=== PATIENT | male | born 1955 | race Caucasian/White ===

== ENCOUNTER 2023-08-18 14:16 | Inpatient (IN) ==
--- NOTE | 2023-08-18 14:32 | ED Triage Note ---
Date of Service August 18, 2023 History of Present Illness This patient was briefly evaluated while in triage. An abbreviated physical exam was performed. This patient is a 68-year-old Male who presents to the ED for evaluation of foot pain. Left foot. He notes a bad infected wound on his heel. He had bad "sweats" last night. Physical Exam GENERAL: 68 year old male. In no acute distress. SKIN: L foot dressing in place. HEART: Regular rate and rhythm. LUNGS: Clear to auscultation. NEURO: Alert and oriented. No deficits. PSYCH: Patient is pleasant and answers all questions appropriately. Initial orders for labs and / or imaging were placed and patient was placed in the waiting area until a bed is available. Please see further documentation for the full ED course.
--- NOTE | 2023-08-18 15:45 | XRay Report ---
XR foot LT min 3V routine HISTORY: 68 years-old Male L foot pain, wound chronic left foot pain COMPARISON: None TECHNIQUE: 3 views of the left foot FINDINGS: Demineralized appearance of the bones. Soft tissue swelling is most pronounced in the dorsal forefoot . Mild to moderate osteoarthritis. No acute fracture, dislocation or opaque foreign body identified. No osseous erosions are seen. IMPRESSION: Soft tissue swelling without acute osseous abnormality identified. ACT 112: Negative or not required by law. The above report was generated using voice recognition software. It may contain grammatical, syntax o r spelling errors. Electronically signed by: Enrrique Ramos M.D. 08/18/2023 3:43 PM
[2023-08-18 16:19] LABS: Albumin Globulin Ratio 0.8 (0.9-2); Bilirubin,Total 1.1 mg/dl (0.2-1.0); Creatinine Clr Calc Pharmacy 98.7 ml/min; Est GFR (African American) 90.5 ml/min; Est GFR (Non-African American) 78.1 ml/min; Globulin 4.9 gm/dl (2.5-4.0); Potassium 3.1 mmol/L (3.5-5.1); Total Protein 8.9 gm/dl (6.0-8.3)
[2023-08-18 16:27] LABS: Basophils # (auto) 0.09 K/uL (0.00-0.20); Basophils % (auto) 0.5 %; Eosinophils # (auto) 0.01 K/uL (0.00-0.50); Eosinophils % (auto) 0.1 %; Hematocrit (blood only) 52.8 % (42.0-52.0); Hemoglobin 18.8 g/dl (14.0-18.0); Immature Granulocytes # (auto) 0.15 K/uL (0.01-0.20); Immature Granulocytes % (auto) 0.8 %; Lymphocytes # (auto) 0.69 K/uL (1.20-3.40); Lymphocytes % (auto) 3.5 %; Mean Corpuscular Hemoglobin 34.3 pg (25.0-34.0); Mean Corpuscular Hgb Conc 35.6 g/dL (32.0-36.0); Mean Corpuscular Volume 96.4 fL (80.0-100.0); Mean Platelet Volume 9.7 fL (9.4-12.4); Monocytes # (auto) 2.26 K/uL (0.11-0.59); Monocytes % (auto) 11.3 %; Neutrophils # (auto) 16.74 K/uL (1.40-6.50); Neutrophils % (auto) 83.8 %; Platelet Count 332 K/uL (130-400); RDW Coefficient of Variation 12.1 % (11.5-14.5); RDW Standard Deviation 43.2 fL (36.4-46.3); Red Blood Count 5.48 M/uL (4.70-6.10); White Blood Count 19.94 K/ul (4.8-10.8)
[2023-08-18 16:36] LABS: INR 1.1 (0.9-1.1); Prothrombin Time 12.2 Seconds (9.0-12.0)
[2023-08-18] MEDS ORDERED: CEFEPIME 2,000 MG/20 ML VIAL IV STA (16:46)
[2023-08-18] MEDS ORDERED: SODIUM CHLORIDE 0.9% 1,000 ML IV ONE (16:46)
[2023-08-18] MEDS ORDERED: POTASSIUM CHLORIDE CRTAB 20 MEQ TABCR PO STA ×2 (16:46→18:12)
--- NOTE | 2023-08-18 16:47 | Emergency Department Note ---
Impression & Plan Left foot infection ADMIT ED Provider Note HPI: History obtained from patient. The patient is a 68-year-old male with history of peripheral artery disease, presents emergency department for evaluation of a wound to the left lower extremity near the heel. Patient states that he has had a dark spot on his heel for some time now but 3 weeks ago he began to notice a wound that began draining some purulent material. He received a referral to be seen in wound care and he went there today. He was referred to the ED over concern for infection. ROS: - Per HPI Differential Diagnosis: Infected pressure ulcer of the left heel, osteomyelitis, necrotizing soft tissue infection, wound cellulitis, amongst other potential pathologies. *Outpatient medications and allergy history reviewed. *Pertinent external medical records reviewed PE: General: Alert HEENT: Normocephalic, trachea midline Eyes: Extraocular eye movement is intact, no scleral erythema Pulmonary: Clear to auscultation bilaterally, no wheezing Cardio: Regular rate and rhythm GI: Abdomen is soft to palpation : No suprapubic tenderness MSK: No evidence of trauma or malformation of the extremities, no edema, there is an unstageable pressure ulcer of the left heel with some moderate purulent drainage to the posterior and lateral aspect of the wound, there is no crepitus in the surrounding soft tissues, no pain out of proportion to exam Skin: No evidence of rash, wound findings to left heel as above Neuro: Alert, no focal deficits Psychiatric: Cooperative INDEPENDENT INTERPRETATIONS: respiratory support technician: (As interpreted by myself): - An order was placed for continuous cardiac monitoring - Patient was noted to be in sinus rhythm with a rate of 95 Interventions provided in ED: -IV fluid bolus, IV cefepime, IV vancomycin Medical Decision Making: Shortly after the patient arrived IV was established lab work ordered, patient was eventually placed in ED room when available. Patient was placed on promotion writer. Lab work shows a leukocytosis of 19.9, hemoglobin is slightly high at 18.8, platelet count is within normal limits, CMP shows mild hyponatremia 132, potassium is low at 3.1, no evidence of acute kidney injury, procalcitonin is indeterminate at 0.35. X-ray imaging of the left foot does not show any evidence of any obvious osteomyelitis. On my exam the wound is purulent, he does have a large eschar on the left heel. I do suspect he has a wound infection and given his leukocytosis will require IV antibiotics and likely surgical debridement. I discussed the patient's presentation with podiatry, Dr. Chau, and he is in agreement for consultation. Case was then discussed with the on-call hospitalist, Dr. Hu, who accepted the patient to the [facility] hospitalist service for further care. Consultants/Discussions held with other healthcare providers: -Dr. Chau, Podiatry -Dr. Hu, Hospitalist Disposition discussion held by myself with: -Patient Diagnosis: 1. Pressure ulcer of the left heel, chronic 2. Left heel wound infection, acute 3. Leukocytosis, acute 4. Hypokalemia, acute 5. Hyponatremia, acute Disposition: Admission Bunny Fay DO Emergency Medicine Past Med/Surg History Medical History (Updated 08/18/23 @ 17:33 by Bunny Fay DO) Hearing loss Neuropathy Personal history of alcoholism Surgical History (Updated 09/11/22 @ 08:33 by Brenda Arias RN) Hx of arthroscopy of left knee meniscus repair Hx of colonoscopy 02/15/11 Hx of colonoscopy 06/01/2020 - prior polyps; S/P bronchoscopy with bronchoalveolar lavage 06/28/22 Family History (Updated 09/11/22 @ 09:29 by Brenda Arias RN) Mother Hypertension Aneurysm of heart Father , age 87 Arterial disease Grandfather (Maternal) Colon cancer, Onset Age: 89 Social History (Updated 09/11/22 @ 09:23 by Brenda Arias RN) Smoking Status: Current every day smoker Tobacco Type: Cigarettes Age Started Using Tobacco: 22; packs per day: 1; Second Hand Exposure: Yes; Hx Alcohol Use: Yes Alcohol type: hard liquor Alcohol type Comment: 3-4 oz mixed whiskey per day Alcohol Intake Frequency: 4 or More x per/Week Hx Substance Use: Yes Prescribed Medications: Marijuana Preferred Language: Turkish Communication Ability: Effective Beliefs That Will Affect Care: None marital status: Current Living Situation: Spouse current occupational status: disabled 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; contractor Feels Safe at Home: Yes Allergies Allergies Allergy/AdvReac Type Severity Reaction Status Date / Time No Known Allergies Allergy Unverified 08/18/23 10:20 Home Meds Home Medications Medication Instructions Recorded Confirmed cyanocobalamin (vitamin B-12) 1,000 mcg sublingual DAILY 09/11/22 08/18/23 1,000 mcg sublingual lozenge folic acid 1 mg tablet 1 mg PO DAILY 09/11/22 08/18/23 gabapentin 300 mg capsule 900 mg PO TID 09/11/22 08/18/23 hydrochlorothiazide 25 mg tablet 25 mg PO DAILY 09/11/22 08/18/23 indomethacin 50 mg capsule 50 mg PO TID PRN pain 09/11/22 08/18/23 pregabalin 25 mg capsule 25 mg PO BID 09/11/22 08/18/23 thiamine HCl (vitamin B1) 100 mg 100 mg PO DAILY 09/11/22 08/18/23 tablet triamcinolone acetonide 0.1 % 1 applic topical BID 09/11/22 08/18/23 topical ointment acetaminophen 500 mg tablet 1,500 mg PO DAILY PRN Pain 01/24/23 08/18/23 (Tylenol Extra Strength) Results & Data (ED) Vital Signs Vital Signs - 24 hr 08/18/23 14:31 08/18/23 17:38 Temperature 37.0 C Temperature Source Temporal Artery Scan Pulse Rate 112 H 93 H Respiratory Rate 20 Respiratory Effort / Characteristics Non-Labored Respiratory Depth Normal Blood Pressure 115/80 Blood Pressure Mean 91 Pulse Oximetry 96 Oxygen Delivery Method Room Air Sepsis Recent Fever Within 48 Hours No Sepsis New/Unexplained Change in Mental Status No Sepsis Action Taken by Nursing No Action Required Laboratory Data 08/18/23 15:32 08/18/23 15:32 Lab Results 08/18/23 08/18/23 08/18/23 Range/Units 15:32 15:32 15:32 WBC 19.94 H (4.8-10.8) K/ul RBC 5.48 (4.70-6.10) M/uL Hgb 18.8 H (14.0-18.0) g/dl Hct 52.8 H (42.0-52.0) % MCV 96.4 (80.0-100.0) fL MCH 34.3 H (25.0-34.0) pg MCHC 35.6 (32.0-36.0) g/dL RDW Std Deviation 43.2 (36.4-46.3) fL RDW Coeff of Vonnie 12.1 (11.5-14.5) % Plt Count 332 (130-400) K/uL MPV 9.7 (9.4-12.4) fL Immature Gran % (Auto) 0.8 % Neut % (Auto) 83.8 % Lymph % (Auto) 3.5 % [place] % (Auto) 11.3 % Eos % (Auto) 0.1 % Baso % (Auto) 0.5 % Neut # (Auto) 16.74 H (1.40-6.50) K/uL Lymph # (Auto) 0.69 L (1.20-3.40) K/uL [place] # (Auto) 2.26 H (0.11-0.59) K/uL Eos # (Auto) 0.01 (0.00-0.50) K/uL Baso # (Auto) 0.09 (0.00-0.20) K/uL Immature Gran # (Auto) 0.15 (0.01-0.20) K/uL PT 12.2 H (9.0-12.0) Seconds INR 1.1 (0.9-1.1) APTT 28.0 (21.0-31.0) Seconds PTT Ratio 1.0 Sodium 132 L (136-145) mmol/L Potassium 3.1 L (3.5-5.1) mmol/L Chloride 95 L (98-107) mmol/L Carbon Dioxide 29 (21-32) mmol/L Anion Gap 8 (3-11) BUN 19 (6-23) mg/dl Creatinine 1.00 (0.6-1.4) mg/dl Est Cr Clr Drug Dosing 98.7 ml/min Est GFR ( Amer) 90.5 ml/min Est GFR (Non-Af Amer) 78.1 ml/min BUN/Creatinine Ratio 19.0 (10-20) Glucose 118 H (70-99(Fasting)) mg/dl Lactate (0.4-2.0) mmol/L Calcium 10.0 (8.6-10.3) mg/dl Total Bilirubin 1.1 H (0.2-1.0) mg/dl AST 21 (13-39) U/L ALT 14 (7-52) U/L Alkaline Phosphatase 78 (34-104) U/L Total Protein 8.9 H (6.0-8.3) gm/dl Albumin 4.0 (3.4-5.0) gm/dl Globulin 4.9 H (2.5-4.0) gm/dl Albumin/Globulin Ratio 0.8 L (0.9-2) Procalcitonin (0-0.5) ng/ml 08/18/23 08/18/23 Range/Units 15:32 15:41 WBC (4.8-10.8) K/ul RBC (4.70-6.10) M/uL Hgb (14.0-18.0) g/dl Hct (42.0-52.0) % MCV (80.0-100.0) fL MCH (25.0-34.0) pg MCHC (32.0-36.0) g/dL RDW Std Deviation (36.4-46.3) fL RDW Coeff of Vonnie (11.5-14.5) % Plt Count (130-400) K/uL MPV (9.4-12.4) fL Immature Gran % (Auto) % Neut % (Auto) % Lymph % (Auto) % [place] % (Auto) % Eos % (Auto) % Baso % (Auto) % Neut # (Auto) (1.40-6.50) K/uL Lymph # (Auto) (1.20-3.40) K/uL [place] # (Auto) (0.11-0.59) K/uL Eos # (Auto) (0.00-0.50) K/uL Baso # (Auto) (0.00-0.20) K/uL Immature Gran # (Auto) (0.01-0.20) K/uL PT (9.0-12.0) Seconds INR (0.9-1.1) APTT (21.0-31.0) Seconds PTT Ratio Sodium (136-145) mmol/L Potassium (3.5-5.1) mmol/L Chloride (98-107) mmol/L Carbon Dioxide (21-32) mmol/L Anion Gap (3-11) BUN (6-23) mg/dl Creatinine (0.6-1.4) mg/dl Est Cr Clr Drug Dosing ml/min Est GFR ( Amer) ml/min Est GFR (Non-Af Amer) ml/min BUN/Creatinine Ratio (10-20) Glucose (70-99(Fasting)) mg/dl Lactate 1.8 (0.4-2.0) mmol/L Calcium (8.6-10.3) mg/dl Total Bilirubin (0.2-1.0) mg/dl AST (13-39) U/L ALT (7-52) U/L Alkaline Phosphatase (34-104) U/L Total Protein (6.0-8.3) gm/dl Albumin (3.4-5.0) gm/dl Globulin (2.5-4.0) gm/dl Albumin/Globulin Ratio (0.9-2) Procalcitonin 0.35 (0-0.5) ng/ml Administered Medications Vancomycin HCl 2,000 mg/ (Sodium Chloride) 540 mls @ 200 mls/hr IV NOW ONE Stop: 08/18/23 19:31 Last Admin: 08/18/23 17:44 Dose: 200 mls/hr Documented By: ROLL MECHANIC Discontinued Medications Sodium Chloride (Nss) 1,000 mls @ 999 mls/hr IV .Q1H1M ONE Stop: 08/18/23 17:46 Last Admin: 08/18/23 17:45 Dose: 999 mls/hr Documented By: ROLL MECHANIC Cefepime HCl (Maxipime) 2,000 mg in 20 mls @ 5 mls/min IV NOW STA; Protocol Stop: 08/18/23 16:49 Last Admin: 08/18/23 17:44 Dose: 5 mls/min Documented By: ROLL MECHANIC Potassium Chloride (Potassium Chloride Crtab 20 Meq Tabcr) 40 meq PO NOW STA Stop: 08/18/23 16:47 Last Admin: 08/18/23 17:41 Dose: 40 meq Documented By: ROLL MECHANIC Imaging Data Radiologist's Impression: Foot X-Ray 08/18/23 14:33 XR foot LT min 3V routine HISTORY: 68 years-old Male L foot pain, wound chronic left foot pain COMPARISON: None TECHNIQUE: 3 views of the left foot FINDINGS: Demineralized appearance of the bones. Soft tissue swelling is most pronounced in the dorsal forefoot. Mild to moderate osteoarthritis. No acute fracture, dislocation or opaque foreign body identified. No osseous erosions are seen. IMPRESSION: Soft tissue swelling without acute osseous abnormality identified. ACT 112: Negative or not required by law. The above report was generated using voice recognition software. It may contain grammatical, syntax or spelling errors. Electronically signed by: Enrrique Ramos M.D. 08/18/2023 3:43 PM Discharge Plan Visit Data Chief Complaint: Foot Injury/Pain Stated Complaint: LT FOOT WOUND, REF FROM ED Provider: Bunny Fay Discharge Problem: Left foot infection Forms Stand Alone Forms: [facility] Prescriptions Prescriptions: No Action cyanocobalamin (vitamin B-12) 1,000 mcg lozenge 1,000 mcg sublingual DAILY thiamine HCl (vitamin B1) 100 mg tablet 100 mg PO DAILY triamcinolone acetonide 0.1 % ointment 1 applic topical BID folic acid 1 mg tablet 1 mg PO DAILY indomethacin 50 mg capsule 50 mg PO TID PRN (Reason: pain) Rx Instructions: administer with food or milk pregabalin 25 mg capsule 25 mg PO BID gabapentin 300 mg capsule 900 mg PO TID hydrochlorothiazide 25 mg tablet 25 mg PO DAILY acetaminophen [Tylenol Extra Strength] 500 mg tablet 1,500 mg PO DAILY PRN (Reason: Pain) Referrals Referrals: PCP,NO [Primary Care Provider] -
[2023-08-18] MEDS ORDERED: VANCOMYCIN CONSULT ACTIVE PRN (16:50)
[2023-08-18] MEDS ORDERED: VANCOMYCIN HCL 2,000 MG in SODIUM CHLORIDE 0.9% 500 ML IV ONE (16:50)
--- NOTE | 2023-08-18 17:32 | History & Physical Report ---
Date of Service August 18, 2023 Assessment & Plan (1) Left foot infection: Plan: 68-year-old male with history of peripheral vascular disease, COPD, etc. presenting with left foot wound infection. LEFT FOOT WOUND INFECTION IN THE SETTING OF PERIPHERAL VASCULAR DISEASE Foot x-ray no osteomyelitis MRI foot ordered Doppler arterial ultrasound ordered Wound culture Blood culture Consult orthopedic service, NPO post midnight Consult infectious disease service Empiric daptomycin plus cefepime check A1c Hyponatremia check serum and urine osm and Na IV NSS at 80cc/hr Hypokalemia replace and monitor check Mg Peripheral vascular disease Should be on aspirin and statin COPD In exacerbation Alcohol Use states he drink 2x/week 4oz will order Alc With Protocol with PRN Ativan Smoker declines Nicotine patch cessation strongly advised 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 presenting with left foot wound infection. Patient reports noticing discoloration of left heel area for the past few weeks. Reports having chills, night sweats but denies pain over the area. He noticed progressive foot swelling, redness and progression to his left lower leg. He presented to the wound care center today and was referred to [facility] ER for evaluation and treatment. Patient's vital signs were stable, but with leukocytosis. Lactic acid negative. Foot x-ray: Soft tissue swelling He was started on vancomycin plus cefepime On exam patient seen resting , not in distress, denies active pain on the foot. Primary Care Provider: NO PCP Allergies Allergy/AdvReac Type Severity Reaction Status Date / Time No Known Allergies Allergy Unverified 08/18/23 10:20 Home Medications Medication Instructions Recorded Confirmed Type cyanocobalamin (vitamin B-12) 1,000 mcg sublingual DAILY 09/11/22 08/18/23 History 1,000 mcg sublingual lozenge folic acid 1 mg tablet 1 mg PO DAILY 09/11/22 08/18/23 History gabapentin 300 mg capsule 900 mg PO TID 09/11/22 08/18/23 History hydrochlorothiazide 25 mg tablet 25 mg PO DAILY 09/11/22 08/18/23 History indomethacin 50 mg capsule 50 mg PO TID PRN pain 09/11/22 08/18/23 History pregabalin 25 mg capsule 25 mg PO BID 09/11/22 08/18/23 History thiamine HCl (vitamin B1) 100 mg 100 mg PO DAILY 09/11/22 08/18/23 History tablet triamcinolone acetonide 0.1 % 1 applic topical BID 09/11/22 08/18/23 History topical ointment acetaminophen 500 mg tablet 1,500 mg PO DAILY PRN Pain 01/24/23 08/18/23 History (Tylenol Extra Strength) Past Med/Surg History Medical History Hearing loss Neuropathy Personal history of alcoholism Surgical History Hx of arthroscopy of left knee meniscus repair Hx of colonoscopy 02/15/11 Hx of colonoscopy 06/01/2020 - prior polyps; S/P bronchoscopy with bronchoalveolar lavage 06/28/22 Family History Mother Hypertension Aneurysm of heart Father , age 87 Arterial disease Grandfather (Maternal) Colon cancer, Onset Age: 89 Social History Smoking Status: Former smoker Tobacco Type: Cigarettes Age Started Using Tobacco: 22; packs per day: 1; Second Hand Exposure: Yes; Do You Dip or Chew Tobacco: No; Hx Alcohol Use: Yes Alcohol type: hard liquor Alcohol type Comment: 3-4 oz mixed whiskey per day Alcohol Intake Frequency: 4 or More x per/Week Hx Substance Use: Yes Prescribed Medications: Marijuana Last Used Substance: Days (ago) Preferred Language: Tajik Communication Ability: Effective Building Serviceman Required: No Beliefs That Will Affect Care: None marital status: Current Living Situation: Spouse current occupational status: disabled 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; contractor Other Information That Helps Us Care for You: No Feels Safe at Home: Yes Safety Concerns: Feels Safe At This Time Assistive Devices: Cane, Walker and Wheelchair Review of Systems Review of Systems: all noted and negative except for above Physical Exam Physical Exam: General- oriented x 3, not in distress, speaks in sentences with no effort or accessory muscle use Eyes- anicteric Neck- no JVD Lungs- clear breath sounds bilaterally, no rales/wheezes Heart- normal rate, regular rhythm; no murmurs Abdomen- normal bowel sounds, nondistended, soft, nontender Extremities- no pretibial edema, no calf tenderness Left foot: Positive for wound on the heel, with eschar, surrounding erythema, and edema, warmth, tenderness Left lower leg also with mild edema, and erythema Neuro- alert, oriented x 3; no gross focal neurologic deficits Skin- warm & dry Results & Data Results & Data Vital Signs (Past 12 Hours) Vital Signs Temp Pulse Resp BP Pulse Ox O2 Del Method 08/18/23 14:31 37.0 C 112 H 20 115/80 96 Room Air all noted and reviewed including below
[2023-08-18] MEDS ORDERED: LORazepam 2 MG/1 ML VIAL IV PRN (18:09)
--- NOTE | 2023-08-18 20:54 | Magnetic Resonance Report ---
Exam(s): MRI LEFT ANKLE Without Contrast EXAM: MR Left Lower Extremity Without Intravenous Contrast, Ankle CLINICAL HISTORY: Reason for exam: r/o osteomyelitis. TECHNIQUE: Multiplanar magnetic resonance images of the left ankle without intravenous contrast. COMPARISON: No relevant prior studies available. FINDINGS: Intact tibiotalar, subtalar, calcaneocuboid, talonavicular joints. Intact distal Achilles tendon. Mild fluid posterior to the ankle joint. Moderate thickening of the medial cord of plantar fascia, but small heel spur. Large heel ulcer, measures approximately 4.8 cm mid-lateral by 2.8 cm anteroposterior and is approximately 7 mm deep. No edema of the underlying calcaneus to indicate osteomyelitis. No fluid collection or abscess. Mild posterior tibial tenosynovitis. Moderate flexor houses longus tenosynovitis. Bilateral peroneal tenosynovitis. Intact anterior extensor tendons. Circumferential subcutaneous edema. Intact deltoid ligament, which is mildly scarred. No osteochondral lesion of the talar dome. IMPRESSION: Large heel ulcer, measures approximately 4.8 cm mid-lateral by 2.8 cm anteroposterior and is approximately 7 mm deep. No edema of the underlying calcaneus to indicate osteomyelitis. No fluid collection or abscess. Electronically signed by: Ari Batista MD 08/18/23 20:54 PM
[2023-08-18] MEDS: PREGABALIN 25 MG CAP PO SCH (22:35)
[2023-08-18] MEDS: GABAPENTIN 300 MG CAP PO SCH (22:35)
[2023-08-18] MEDS: DAPTOmycin 375 MG in SYRINGE 0 ML IV SCH (22:36)
[2023-08-18] MEDS: SODIUM CHLORIDE 0.9% 1,000 ML IV SCH (22:40)
--- NOTE | 2023-08-18 22:42 | Orthopedic Consultation ---
Date of Consultation August 18, 2023 Assessment & Plan (1) Left foot infection: Patient seen and evaluated in [facility] ED. A thorough evaluation of right heel wound was done in detail. Off loading is an important part of this Patient's management. Doni hedrick ordered for off loading at all times. Discussed use of bedside debridement. Patient may require surgical care and will continue to follow while in house. (2) Ulcer of left heel: History of Present Illness Attending Physician: Rajeev Hu MD History of Present Illness Patient is a 68-year-old male seen in [facility] ED for left heel ulcer. Patient has a past medical history significant for peripheral vascular disease, COPD, neuropathy, and alcoholism. Patient was seen at [facility] wound healing center and refered to [facility] ER for evaluation and treatment. Patient reports noticing discoloration of left heel area for the past few weeks. Reports having chills, night sweats but denies pain over the area. He noticed progressive foot swelling, redness and progression to his left lower leg. Patient's vital signs were stable, but with leukocytosis. Allergies Allergy/AdvReac Type Severity Reaction Status Date / Time No Known Allergies Allergy Unverified 08/18/23 10:20 Home Medications Medication Instructions Recorded Confirmed Type cyanocobalamin (vitamin B-12) 1,000 mcg sublingual DAILY 09/11/22 08/18/23 History 1,000 mcg sublingual lozenge folic acid 1 mg tablet 1 mg PO DAILY 09/11/22 08/18/23 History gabapentin 300 mg capsule 900 mg PO TID 09/11/22 08/18/23 History hydrochlorothiazide 25 mg tablet 25 mg PO DAILY 09/11/22 08/18/23 History indomethacin 50 mg capsule 50 mg PO TID PRN pain 09/11/22 08/18/23 History pregabalin 25 mg capsule 25 mg PO BID 09/11/22 08/18/23 History thiamine HCl (vitamin B1) 100 mg 100 mg PO DAILY 09/11/22 08/18/23 History tablet triamcinolone acetonide 0.1 % 1 applic topical BID 09/11/22 08/18/23 History topical ointment acetaminophen 500 mg tablet 1,500 mg PO DAILY PRN Pain 01/24/23 08/18/23 History (Tylenol Extra Strength) Patient History Medical History Hearing loss Neuropathy Personal history of alcoholism Surgical History Hx of arthroscopy of left knee meniscus repair Hx of colonoscopy 02/15/11 Hx of colonoscopy 06/01/2020 - prior polyps; S/P bronchoscopy with bronchoalveolar lavage 06/28/22 Family History Mother Hypertension Aneurysm of heart Father , age 87 Arterial disease Grandfather (Maternal) Colon cancer, Onset Age: 89 Social History Smoking Status: Former smoker Tobacco Type: Cigarettes Age Started Using Tobacco: 22; packs per day: 1; Second Hand Exposure: Yes; Do You Dip or Chew Tobacco: No; Hx Alcohol Use: Yes Alcohol type: hard liquor Alcohol type Comment: 3-4 oz mixed whiskey per day Alcohol Intake Frequency: 4 or More x per/Week Hx Substance Use: Yes Prescribed Medications: Marijuana Last Used Substance: Days (ago) Preferred Language: Colombian Communication Ability: Effective Performing Artist Required: No Beliefs That Will Affect Care: None marital status: Current Living Situation: Spouse current occupational status: disabled 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; contractor Other Information That Helps Us Care for You: No Feels Safe at Home: Yes Safety Concerns: Feels Safe At This Time Assistive Devices: Cane, Walker and Wheelchair Review of Systems Review of Systems: All systems reviewed & are unremarkable except as noted in HPI & below Physical Exam Constitutional: well developed and cooperative Eyes: normal visual king by confrontation Neck: trachea midline Respiratory: normal respiratory effort Cardiovascular: Rate/Rhythm: regular rate and regular rhythm Musculoskeletal: Extremities: extremities normal to inspection and strength 5/5 throughout Skin: + ulcer (Left heel ulcer plantar eschar medial plantar full thickness wound) and + erythema (left heel wound with edema) Neurologic: moves all extremities (Decreased epicritic sensation) Psychiatric: Orientation: alert and oriented x 3 Results & Data Vital Signs (Past 12 Hours) Vital Signs Temp Pulse Pulse Resp BP BP Pulse Ox 08/18/23 21:54 36.3 C L 89 16 112/79 93 08/18/23 20:55 88 14 122/59 L 98 08/18/23 20:30 94 08/18/23 20:30 109/81 08/18/23 20:29 91 08/18/23 20:29 95/75 L 08/18/23 19:00 86 17 91 08/18/23 19:00 103/78 08/18/23 18:50 86 20 91 08/18/23 18:40 87 21 90 08/18/23 18:31 90 14 93 08/18/23 18:31 99/69 L 08/18/23 18:30 87 16 96 08/18/23 18:20 89 21 90 08/18/23 18:10 90 14 95 08/18/23 18:00 90 17 91 08/18/23 18:00 104/78 08/18/23 17:50 94 H 24 95 08/18/23 17:40 93 H 17 95 08/18/23 17:39 92 H 19 94 08/18/23 17:38 110/82 08/18/23 17:38 93 H 08/18/23 14:31 37.0 C 112 H 20 115/80 96 O2 Del Method 08/18/23 21:54 Room Air 08/18/23 20:55 Room Air 08/18/23 20:30 08/18/23 20:30 08/18/23 20:29 08/18/23 20:29 08/18/23 19:00 08/18/23 19:00 08/18/23 18:50 08/18/23 18:40 08/18/23 18:31 08/18/23 18:31 08/18/23 18:30 08/18/23 18:20 08/18/23 18:10 08/18/23 18:00 08/18/23 18:00 08/18/23 17:50 08/18/23 17:40 08/18/23 17:39 08/18/23 17:38 08/18/23 17:38 08/18/23 14:31 Room Air Diagnostic Findings [facility] [place], [place] [phone] Magnetic Resonance Report Patient:KAREN FRENCH Admit Date:08/18/23 MR#:[id number] Address[address] Acct ID:[id number] Address2: Date:1955 [facility] Zip:[place] [id number] Age:68 Location:ED Sex:M Room/Bed: Att Phy: Diagnosis:LT FOOT WOUND, REF FROM DR Hannah Sellers:PCP,NO Service Date:08/18/23 [facility] Phy: Interpreting Phy:Ari Batista MDAdmit Phy: Ordering Phy:Rajeev Hu MD cc: ~ Exam(s): MRI LEFT ANKLE Without Contrast EXAM: MR Left Lower Extremity Without Intravenous Contrast, Ankle CLINICAL HISTORY: Reason for exam: r/o osteomyelitis. TECHNIQUE: Multiplanar magnetic resonance images of the left ankle without intravenous contrast. COMPARISON: No relevant prior studies available. FINDINGS: Intact tibiotalar, subtalar, calcaneocuboid, talonavicular joints. Intact distal Achilles tendon. Mild fluid posterior to the ankle joint. Moderate thickening of the medial cord of plantar fascia, but small heel spur. Large heel ulcer, measures approximately 4.8 cm mid-lateral by 2.8 cm anteroposterior and is approximately 7 mm deep. No edema of the underlying calcaneus to indicate osteomyelitis. No fluid collection or abscess. Mild posterior tibial tenosynovitis. Moderate flexor houses longus tenosynovitis. Bilateral peroneal tenosynovitis. Intact anterior extensor tendons. Circumferential subcutaneous edema. Intact deltoid ligament, which is mildly scarred. No osteochondral lesion of the talar dome. IMPRESSION: Large heel ulcer, measures approximately 4.8 cm mid-lateral by 2.8 cm anteroposterior and is approximately 7 mm deep. No edema of the underlying calcaneus to indicate osteomyelitis. No fluid collection or abscess. Electronically signed by: Ari Batista MD 08/18/23 20:54 PM Dictated:08/18/232053 Transcribed: 08/18/232053
[2023-08-19] MEDS: CEFEPIME 2,000 MG in SYRINGE 0 ML IV SCH ×3 (02:20→18:32)
[2023-08-19 08:07] LABS: Hematocrit (blood only) 46.3 % (42.0-52.0); Hemoglobin 16.2 g/dl (14.0-18.0); Red Blood Count 4.75 M/uL (4.70-6.10); White Blood Count 15.19 K/ul (4.8-10.8)
[2023-08-19 08:08] LABS: Basophils # (auto) 0.06 K/uL (0.00-0.20); Basophils % (auto) 0.4 %; Eosinophils # (auto) 0.08 K/uL (0.00-0.50); Eosinophils % (auto) 0.5 %; Immature Granulocytes # (auto) 0.09 K/uL (0.01-0.20); Immature Granulocytes % (auto) 0.6 %; Lymphocytes # (auto) 0.74 K/uL (1.20-3.40); Lymphocytes % (auto) 4.9 %; Mean Corpuscular Hemoglobin 34.1 pg (25.0-34.0); Mean Corpuscular Volume 97.5 fL (80.0-100.0); Mean Platelet Volume 9.7 fL (9.4-12.4); Monocytes # (auto) 2.19 K/uL (0.11-0.59); Monocytes % (auto) 14.4 %; Neutrophils # (auto) 12.03 K/uL (1.40-6.50); Neutrophils % (auto) 79.2 %; Platelet Count 281 K/uL (130-400); RDW Coefficient of Variation 12.2 % (11.5-14.5)
[2023-08-19 08:33] LABS: Calcium 8.8 mg/dl (8.6-10.3); Creatinine Clr Calc Pharmacy 120.3 ml/min; Est GFR (African American) 106.8 ml/min; Est GFR (Non-African American) 92.1 ml/min; Potassium 3.1 mmol/L (3.5-5.1)
--- NOTE | 2023-08-19 09:42 | Ultrasound Report ---
LEFT LOWER EXTREMITY VENOUS DOPPLER HISTORY: Acute pain and swelling of the left lower leg edema, r/o dvt COMPARISON STUDY: None. FINDINGS: There is normal compressibility, flow, and augmentation within the left lower extremity alma p venous system. IMPRESSION: No DVT within the left lower extremity. ACT 112: Negative or not required by law. Electronically signed by: Enrrique Ramos M.D. 08/19/2023 9:41 AM
[2023-08-19] MEDS: CYANOCOBALAMIN (B-12) 500 MCG TABLET PO SCH (10:16)
[2023-08-19] MEDS: FOLIC ACID 1 MG TAB PO SCH (10:17)
[2023-08-19] MEDS: ADVANCED PROBIOTIC 1250 MG CAPSULE PO SCH (10:17)
[2023-08-19] MEDS: GABAPENTIN 300 MG CAP PO SCH ×3 (10:18→21:21)
[2023-08-19] MEDS: THIAMINE HCL 100 MG TAB PO SCH (10:19)
[2023-08-19] MEDS: PREGABALIN 25 MG CAP PO SCH ×2 (10:39→21:21)
[2023-08-19 10:56] LABS: Estimated Average Glucose 126 mg/dl
[2023-08-19] MEDS: POTASSIUM CHLORIDE CRTAB 20 MEQ TABCR PO SCH ×2 (11:50→21:22)
--- NOTE | 2023-08-19 13:23 | Hospitalist Progress Note ---
Date of Service August 19, 2023 Assessment & Plan (1) Left foot infection: Plan: 68-year-old male with history of peripheral vascular disease, COPD, etc. presenting with left foot wound infection. LEFT FOOT WOUND INFECTION IN THE SETTING OF PERIPHERAL VASCULAR DISEASE ---Foot x-ray no osteomyelitis ---MRI foot Large heel ulcer, measures approximately 4.8 cm mid-lateral by 2.8 cm, anteroposterior and is approximately 7 mm deep.No edema of the underlying calcaneus to indicate osteomyelitis.No fluid collection or abscess. Doppler arterial ultrasound ordered Vascular duplex done at [facility] on 08/14: Bilateral lower extremity Dopplers with ABIs 0.51 consistent with moderate arterial occlusive disease, L peroneal artery wave form absent Wound culture Blood culture Consult orthopedic service - discussed with Dr. Chau who will do bedside debridement later this evening with possible intervention in OR tomorrow if necessary Consult infectious disease service Empiric daptomycin plus cefepime A1C 6.0 off load wound consult vasc based on abnormal vascular duplex Hyponatremia improving with IVF IV NSS at 80cc/hr will continue throughout today and re eval tomorrow Hypokalemia start on 40meq KCL bid due to continued low K check mag in a.m. Peripheral vascular disease needs to be on ASA/Statin will hold on statin due to Daptomycin therapy also hold ASA until seen by ortho obtain lipid panel in a.m. Pre Diabetes a1c 6.0 encourage diet/lifestyle modifications diabetes education packets to be provided. 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 Hu, please see addendum Plan delayed entry date of service noted above Attending Addendum: care coordinated with DELORIS Morillo please refer to her notes for full details, I agree with her notes patient seen and examined, records reviewed by myself as well ASSESSMENT AND PLAN diagnoses and plan of care as per DELORIS Morillo's notes Rajeev Hu MD Admission and Anticipated Discharge Date Admission Date: August 18, 2023 Subjective Patient was seen and examined in 356-1. Follow-up heel ulcer. This is a 68-year-old male who established with wound clinic yesterday for left heel wound. He was noted to have an unstageable pressure ulcer with secondary cellulitis of left heel and was referred to ED for IV antibiotics. Patient did have arterial ultrasounds performed on 08/14/2023 at [facility] which showed bilateral ABIs 1.51 as well as monophasic flow through the popliteal posterior tibial and dorsalis pedis artery with absent left peroneal artery waveform. He has never seen vascular surgery. He currently denies any pain in his foot is in a certain position. Overall has diminished appetite and did not eat breakfast. Denies fever, chills, sweats, lightheadedness, dizziness, chest pain, shortness breath, nausea, vomit, abdominal pain. Review of Systems Review of Systems: All systems reviewed & are unremarkable except as noted in HPI & below Physical Exam Physical Exam: Gen: WD/WN, NAD, A&O x3 HEENT: Normocephalic, atraumatic, conjunctivae moist, sclerae anicteric, mucous membranes moist. Lung: Clear to Auscultation bilaterally, no wheezes/rales/rhonchi Heart: Regular rate, regular rhythm, no murmurs, rubs, or gallops Abdomen: Soft, NT, ND +BS x 4 Extremities: Foul-smelling unstageable left heel ulcer Skin: Warm, no rash, negative turgor. Results & Data Results & Data Vital Signs (Past 12 Hours) Vital Signs Temp Pulse Resp BP Pulse Ox O2 Del Method 08/19/23 10:24 Room Air 08/19/23 02:42 36.4 C L 80 16 111/77 93 Room Air Laboratory Results Short CBC 08/18/23 08/19/23 Range/Units 15:32 07:43 WBC 19.94 H 15.19 H (4.8-10.8) K/ul Hgb 18.8 H 16.2 (14.0-18.0) g/dl Hct 52.8 H 46.3 (42.0-52.0) % Plt Count 332 281 (130-400) K/uL BMP 08/18/23 08/18/23 08/19/23 15:32 15:32 07:43 Sodium 132 L 132 L 135 L Potassium 3.1 L 3.1 L Chloride 95 L 101 Carbon Dioxide 29 28 BUN 19 18 Creatinine 1.00 0.82 Glucose 118 H 106 H Calcium 10.0 8.8 Liver Function 08/18/23 Range/Units 15:32 Total Bilirubin 1.1 H (0.2-1.0) mg/dl AST 21 (13-39) U/L ALT 14 (7-52) U/L Alkaline Phosphatase 78 (34-104) U/L Albumin 4.0 (3.4-5.0) gm/dl Diagnostic Findings Foot X-Ray 08/18/23 14:33 XR foot LT min 3V routine HISTORY: 68 years-old Male L foot pain, wound chronic left foot pain COMPARISON: None TECHNIQUE: 3 views of the left foot FINDINGS: Demineralized appearance of the bones. Soft tissue swelling is most pronounced in the dorsal forefoot. Mild to moderate osteoarthritis. No acute fracture, dislocation or opaque foreign body identified. No osseous erosions are seen. IMPRESSION: Soft tissue swelling without acute osseous abnormality identified. ACT 112: Negative or not required by law. The above report was generated using voice recognition software. It may contain grammatical, syntax or spelling errors. Electronically signed by: Enrrique Ramos M.D. 08/18/2023 3:43 PM Ankle MRI 08/18/23 17:25 Exam(s): MRI LEFT ANKLE Without Contrast EXAM: MR Left Lower Extremity Without Intravenous Contrast, Ankle CLINICAL HISTORY: Reason for exam: r/o osteomyelitis. TECHNIQUE: Multiplanar magnetic resonance images of the left ankle without intravenous contrast. COMPARISON: No relevant prior studies available. FINDINGS: Intact tibiotalar, subtalar, calcaneocuboid, talonavicular joints. Intact distal Achilles tendon. Mild fluid posterior to the ankle joint. Moderate thickening of the medial cord of plantar fascia, but small heel spur. Large heel ulcer, measures approximately 4.8 cm mid-lateral by 2.8 cm anteroposterior and is approximately 7 mm deep. No edema of the underlying calcaneus to indicate osteomyelitis. No fluid collection or abscess. Mild posterior tibial tenosynovitis. Moderate flexor houses longus tenosynovitis. Bilateral peroneal tenosynovitis. Intact anterior extensor tendons. Circumferential subcutaneous edema. Intact deltoid ligament, which is mildly scarred. No osteochondral lesion of the talar dome. IMPRESSION: Large heel ulcer, measures approximately 4.8 cm mid-lateral by 2.8 cm anteroposterior and is approximately 7 mm deep. No edema of the underlying calcaneus to indicate osteomyelitis. No fluid collection or abscess. Electronically signed by: Ari Batista MD 08/18/23 20:54 PM Venous Doppler Study 08/19/23 00:00 LEFT LOWER EXTREMITY VENOUS DOPPLER HISTORY: Acute pain and swelling of the left lower leg edema, r/o dvt COMPARISON STUDY: None. FINDINGS: There is normal compressibility, flow, and augmentation within the left lower extremity deep venous system. IMPRESSION: No DVT within the left lower extremity. ACT 112: Negative or not required by law. Electronically signed by: Enrrique Ramos M.D. 08/19/2023 9:41 AM 08/14/23 at [facility] ARTERIAL DOPPLERS OF THE LOWER EXTREMITIES: Immediately before proceeding with the vascular lab procedure reported below, the identity of the patient, the correct exam and the correct procedural site were identified. Continuous wave doppler and appropriate size pressure cuffs were utilized during the examination. The right and the left brachial artery blood pressures are 144 and 110 mmHg respectively. On the right, the femoral artery waveform is biphasic and has an amplitude which is excellent. The right popliteal artery waveform is monophasic and has an amplitude which is decreased. The right posterior tibial artery waveform is absent. The right dorsalis pedis artery waveform is monophasic and has an amplitude which is decreased. The right peroneal artery waveform is absent. The tibial pressure is 74 mmHg. On the left, the femoral artery waveform is triphasic and has an amplitude which is excellent. The left popliteal artery waveform is monophasic and has an amplitude which is decreased. The left posterior tibial artery waveform is monophasic and has an amplitude which is decreased. The left dorsalis pedis artery waveform is monophasic and has an amplitude which is decreased. The left peroneal artery waveform is absent. The tibial pressures range from 74 mmHg to 80 mmHg. IMPRESSION: For the right lower extremity: Ankle brachial index (URVASHI) at rest is 0.51 Lower extremity Doppler Evaluation is consistent with moderate arterial occlusive disease. For the left lower extremity: Ankle brachial index (URVASHI) at rest is 0.51 on the left. Lower extremity Doppler Evaluation is consistent with moderate arterial occlusive disease. Medications Administered Current Inpatient Medications Acetaminophen (Acetaminophen 325 Mg Tab) 650 mg PO Q4H PRN PRN Reason: pain/fever Stop: 09/17/23 21:38 Cyanocobalamin (Cyanocobalamin (B-12) 500 Mcg Tablet) 1,000 mcg PO DAILY MAYE Stop: 09/18/23 08:59 Last Admin: 08/19/23 10:16 Dose: 1,000 mcg Folic Acid (Folic Acid 1 Mg Tab) 1 mg PO DAILY MAYE Stop: 09/18/23 08:59 Last Admin: 08/19/23 10:17 Dose: 1 mg Gabapentin (Gabapentin 300 Mg Cap) 900 mg PO TID MAYE Stop: 09/17/23 20:59 Last Admin: 08/19/23 10:18 Dose: 900 mg Sodium Chloride (Nss) 1,000 mls @ 80 mls/hr IV .[id number] MAYE Stop: 09/17/23 18:14 Last Admin: 08/18/23 22:40 Dose: 80 mls/hr Daptomycin 375 mg/ Syringe 7.5 mls @ 3.75 mls/min IV Q24H [facility]; Protocol Stop: 08/25/23 21:59 Last Admin: 08/18/23 22:36 Dose: 3.75 mls/min Cefepime HCl 2,000 mg/ Syringe 20 mls @ 5 mls/min IV Q8H [facility]; Protocol Stop: 08/26/23 01:59 Last Admin: 08/19/23 10:39 Dose: 5 mls/min Lactobacillus Acidophilus (Advanced Probiotic 1250 Mg Capsule) 2 cap PO DAILY MAYE Stop: 09/18/23 08:59 Last Admin: 08/19/23 10:17 Dose: 2 cap Lorazepam (Lorazepam 2 Mg/1 Ml Vial) 1 mg IV ONE PRN; Protocol PRN Reason: EtoH Withdrawal AWSS 6-10 Potassium Chloride (Potassium Chloride Crtab 20 Meq Tabcr) 40 meq PO BID MAYE Stop: 09/18/23 11:14 Last Admin: 08/19/23 11:50 Dose: 40 meq Pregabalin (Pregabalin 25 Mg Cap) 25 mg PO BID MAYE Stop: 09/17/23 20:59 Last Admin: 08/19/23 10:39 Dose: 25 mg Thiamine HCl (Thiamine Hcl 100 Mg Tab) 100 mg PO DAILY MAYE Stop: 09/18/23 08:59 Last Admin: 08/19/23 10:19 Dose: 100 mg
[2023-08-19] MEDS: SODIUM CHLORIDE 0.9% 1,000 ML IV SCH (15:31)
--- NOTE | 2023-08-19 15:49 | Electrocardiogram Report ---
Test Reason : Blood Pressure : / mmHG Vent. Rate : 082 BPM Atrial Rate : 082 BPM P-R Int : 140 ms QRS Dur : 102 ms QT Int : 430 ms P-R-T Axes : 025 064 051 degrees QTc Int : 502 ms Poor data quality, interpretation may be adversely affected Normal sinus rhythm Prolonged QT Abnormal ECG When compared with ECG of 26-DEC-2010 10:04, QT has lengthened Confirmed by Zaheer Jain ([id number]) on 08/19/2023 3:49:30 PM Referred By: Anitra Mooney Confirmed By:Zaheer Jain
--- NOTE | 2023-08-19 19:56 | Orthopedic Progress Note ---
Date of Service August 19, 2023 Assessment & Plan (1) Left foot infection: Plan: Patient seen and evaluated in [facility] ED. A thorough evaluation of right heel wound was done in detail. Sharp debridement at bedside was completed. See procedure noted below. Due to the depth and Patient's tolerance of positioning during procedure OR debridement was also elected. Off loading is an important part of this Patient's management. Doni hedrick ordered for off loading at all times. Today's procedure is an excisional debridement of deep tissue. There is a moderate amount of serosanguineous exudate draining from the ulcer. The ulcer base is described as containing has malodorous necrotic tissue. Necrotic or devitalized tissue is estimated to be present in approximately 100% of the pressure ulcer bed. The ulcer has been exposed full-thickness tissue. I have informed the patient of the risks and benefit of this procedure and they have had the opportunity to ask questions. Appropriate consent has been obtained. The patient refused site marking. The area was prepped and draped in usual aseptic manner. The procedure was performed and a clean field. I debrided the wound sharply with a sterile #15 blade and necrotic tissue was excised down to and including muscle and tendon . Bleeding was minimal and hemostasis was achieved using pressure. The patient tolerated procedure but will require further debridement in and OR setting. (2) Ulcer of left heel: Admission and Anticipated Discharge Date Admission Date: August 18, 2023 Subjective Patient was seen and examined in 356-1. Follow-up heel ulcer. Review of Systems Review of Systems: All systems reviewed & are unremarkable except as noted in HPI & below Physical Exam Constitutional: well developed and cooperative Eyes: normal visual king by confrontation Neck: trachea midline Respiratory: normal respiratory effort Cardiovascular: Rate/Rhythm: regular rate and regular rhythm Vessels: posterior tibial pulses present and dorsalis pedis pulses present Musculoskeletal: Extremities: extremities normal to inspection and strength 5/5 throughout Skin: + ulcer (Left heel ulcer plantar eschar medial plantar full thickness wound) and + erythema (left heel wound with edema) Neurologic: moves all extremities (Decreased epicritic sensation) Psychiatric: Orientation: alert and oriented x 3 Results & Data Vital Signs (Past 12 Hours) Vital Signs Temp Pulse BP Pulse Ox O2 Del Method 08/19/23 15:38 36.7 C 79 125/76 93 Room Air 08/19/23 10:24 Room Air
[2023-08-19] MEDS: DAPTOmycin 375 MG in SYRINGE 0 ML IV SCH (21:22)
[2023-08-20] MEDS: CEFEPIME 2,000 MG in SYRINGE 0 ML IV SCH ×3 (02:18→19:15)
[2023-08-20] MEDS: SODIUM CHLORIDE 0.9% 1,000 ML IV SCH ×2 (05:34→20:34)
[2023-08-20 05:51] LABS: Basophils # (auto) 0.04 K/uL (0.00-0.20); Basophils % (auto) 0.2 %; Eosinophils % (auto) 0.6 %; Hematocrit (blood only) 44.9 % (42.0-52.0); Immature Granulocytes # (auto) 0.08 K/uL (0.01-0.20); Immature Granulocytes % (auto) 0.5 %; Lymphocytes # (auto) 0.81 K/uL (1.20-3.40); Lymphocytes % (auto) 4.9 %; Mean Corpuscular Hgb Conc 35.6 g/dL (32.0-36.0); Mean Corpuscular Volume 95.5 fL (80.0-100.0); Mean Platelet Volume 9.6 fL (9.4-12.4); Monocytes # (auto) 2.27 K/uL (0.11-0.59); Monocytes % (auto) 13.7 %; Neutrophils # (auto) 13.28 K/uL (1.40-6.50); Neutrophils % (auto) 80.1 %; Platelet Count 304 K/uL (130-400); RDW Coefficient of Variation 12.1 % (11.5-14.5); RDW Standard Deviation 42.4 fL (36.4-46.3); White Blood Count 16.58 K/ul (4.8-10.8)
[2023-08-20 06:12] LABS: BUN Creatinine Ratio 22.1 (10-20); Calcium 8.7 mg/dl (8.6-10.3); Chol HDL Ratio 5.1 (0-5); Creatinine Clr Calc Pharmacy 145.1 ml/min; Est GFR (African American) 115.3 ml/min; Est GFR (Non-African American) 99.5 ml/min; Potassium 3.6 mmol/L (3.5-5.1)
[2023-08-20 06:16] LABS: A calco-baum cmplx NotReported Not Detected (NotDetected); Bact fragilis Not Reported Not Detected (NotDetected); C auris Not Reported Not Detected (NotDetected); Calbicans Not Reported Not Detected (NotDetected); Candida glabrata Not Reported Not Detected (NotDetected); Candida krusei Not Reported Not Detected (NotDetected); Cneoformans/gatti Not Reported Not Detected (NotDetected); Cparapsilosis Not Reported Not Detected (NotDetected); E cloacae compx Not Reported Not Detected (NotDetected); Efaecalis Not Reported Not Detected (NotDetected); Efaecium Not Reported Not Detected (NotDetected); Enterobacterales Not Reported Not Detected (NotDetected); Escherichia coli Not Reported Not Detected (NotDetected); H influenzae Not Reported Not Detected (NotDetected); K aerogenes Not Reported Not Detected (NotDetected); Koxytoca Not Reported Not Detected (NotDetected); Kpneumoniae grp Not Reported Not Detected (NotDetected); Lmonocyt Not Reported Not Detected (NotDetected); N meningitidis Not Reported Not Detected (NotDetected); P aeruginosa Not Reported Not Detected (NotDetected); Proteus spp Not Reported Not Detected (NotDetected); Salmonella spp Not Reported Not Detected (NotDetected); Smarcescens Not Reported Not Detected (NotDetected); Staph lugdunensis Not Reported Not Detected (NotDetected); Staph spp. Not Reported Not Detected (NotDetected); Staphaureus Not Reported Not Detected (NotDetected); Staphepi Not Reported Not Detected (NotDetected); Stenmaltophilia Not Reported Not Detected (NotDetected); Strep agal(GrpB) Not Reported Not Detected (NotDetected); Strep pneum Not Reported Not Detected (NotDetected); Strep pyog (GrpA) Not Reported Not Detected (NotDetected); Strep spp Not Reported Not Detected (NotDetected)
[2023-08-20] MEDS: ADVANCED PROBIOTIC 1250 MG CAPSULE PO SCH (08:27)
[2023-08-20] MEDS: POTASSIUM CHLORIDE CRTAB 20 MEQ TABCR PO SCH ×2 (08:28→21:19)
[2023-08-20] MEDS: THIAMINE HCL 100 MG TAB PO SCH (08:28)
[2023-08-20] MEDS: GABAPENTIN 300 MG CAP PO SCH ×3 (08:28→21:20)
[2023-08-20] MEDS: CYANOCOBALAMIN (B-12) 500 MCG TABLET PO SCH (08:28)
[2023-08-20] MEDS: FOLIC ACID 1 MG TAB PO SCH (08:28)
[2023-08-20] MEDS: ACETAMINOPHEN 325 MG TAB PO PRN (09:08)
[2023-08-20] MEDS: PREGABALIN 25 MG CAP PO SCH ×2 (09:08→21:19)
--- NOTE | 2023-08-20 09:09 | Infectious Disease Consult ---
Date of Service August 20, 2023 Telehealth Information I performed this visit using a real-time telehealth connection between my location and the patients location ([facility]). After connecting through interactive tele-video, patient was identified by name and date of and/or wristband check.Patient (or authorized healthcare new accounts banking representative) was informed that this was a telemedicine visit and it was being conducted confidentially over secure lines. My office door was closed and no one else was present in the room with me.Patient (or authorized healthcare new accounts banking representative) provided consent to proceed with the visit, expressed an understanding of privacy and security of the telemedicine visit, and gave permission to have a hospital new accounts banking representative in the room in order to assist with the visit and to conduct portions of the visit, as needed. I informed the patient (or authorized healthcare new accounts banking representative) that I reviewed their record and presented the opportunity for them to ask any questions regarding the visit today. The patient agreed to participate. Assessment & Plan (1) Ulcer of left heel: (2) Left foot infection: Plan: Assessment: Infected L heel ulcer GPC in blood - contaminant? Hx of EtOH abuse, peripheral neuropathy, PVD and COPD 08/19/23 - bedside debridement Recommendations: - I agree w/ vancomycin iv to maintain AUC 400-600 or trough 15-30 and cefepime for now - F/u blood cultures: PCR ruled out Strep group A and Staph spp - F/u wound culture - Obtain tissues from OR debridement for bacterial culture - Pending OR culture today - Anticipate a short course of abx therapy, ~14 days, as there is no evidence of OM per MRI - Final rec to follow depending on the culture result - the patient will benefit from routine podiatry f/u More than 50% of [id number] visit was spent counseling and coordinating care pertaining to the patient's infection diagnosis, additional work-up, and treatment option(s) as well as potential adverse events of the treatment. History of Present Illness History of Present Illness This 68 y/o male w/ hx of EtOH abuse, peripheral neuropathy, PVD and COPD presented to [facility] on 08/18/23 for night sweats, hot and chills mostly at night, and progressively worsening L foot swelling and redness. He has yennifer been noticing discoloration of L heel past few weeks. No fever was noted on admission but significant leukocytosis. MRI showed no evidence of OM or abscess. Blood cultures showed GPC in clusters in 1 of 4 bottles. Ortho has performed sharp debridement at bedside w/ pending OR debridement. ID was called for management of L foot infection. He is resting comfortably in bed w/ "not much pain" on the L heel. Denies f/c not but feeling warm at night. Denies abd pain, n/v, diarrhea, persistent coughing, cp, or sob. He is not sure how he developed the heel ulcer. No obvious trauma or injury he can recall. Allergies Allergy/AdvReac Type Severity Reaction Status Date / Time No Known Allergies Allergy Unverified 08/18/23 10:20 Home Medications Medication Instructions Recorded Confirmed Type cyanocobalamin (vitamin B-12) 1,000 mcg sublingual DAILY 09/11/22 08/18/23 History 1,000 mcg sublingual lozenge folic acid 1 mg tablet 1 mg PO DAILY 09/11/22 08/18/23 History gabapentin 300 mg capsule 900 mg PO TID 09/11/22 08/18/23 History hydrochlorothiazide 25 mg tablet 25 mg PO DAILY 09/11/22 08/18/23 History indomethacin 50 mg capsule 50 mg PO TID PRN pain 09/11/22 08/18/23 History pregabalin 25 mg capsule 25 mg PO BID 09/11/22 08/18/23 History thiamine HCl (vitamin B1) 100 mg 100 mg PO DAILY 09/11/22 08/18/23 History tablet triamcinolone acetonide 0.1 % 1 applic topical BID 09/11/22 08/18/23 History topical ointment acetaminophen 500 mg tablet 1,500 mg PO DAILY PRN Pain 01/24/23 08/18/23 History (Tylenol Extra Strength) Patient History Medical History Hearing loss Neuropathy Personal history of alcoholism Surgical History Hx of arthroscopy of left knee meniscus repair Hx of colonoscopy 02/15/11 Hx of colonoscopy 06/01/2020 - prior polyps; S/P bronchoscopy with bronchoalveolar lavage 06/28/22 Family History Mother Hypertension Aneurysm of heart Father , age 87 Arterial disease Grandfather (Maternal) Colon cancer, Onset Age: 89 Social History Smoking Status: Former smoker Tobacco Type: Cigarettes Age Started Using Tobacco: 22; packs per day: 1; Second Hand Exposure: Yes; Do You Dip or Chew Tobacco: No; Hx Alcohol Use: Yes Alcohol type: hard liquor Alcohol type Comment: 3-4 oz mixed whiskey per day Alcohol Intake Frequency: 4 or More x per/Week Hx Substance Use: Yes Prescribed Medications: Marijuana Last Used Substance: Days (ago) Preferred Language: Polish Communication Ability: Effective Floorwalker Required: No Beliefs That Will Affect Care: None marital status: Current Living Situation: Spouse current occupational status: disabled 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; contractor Other Information That Helps Us Care for You: No Feels Safe at Home: Yes Safety Concerns: Feels Safe At This Time Assistive Devices: Cane, Walker and Wheelchair Review of Systems as HPI and all others negative Physical Exam Gen: no acute distress Neuro: alert, awake, oriented x 3 Results & Data Vital Signs (Past 12 Hours) Vital Signs Temp Pulse Resp BP Pulse Ox O2 Del Method 08/20/23 07:38 36.8 C 73 18 115/72 96 Room Air 08/19/23 21:22 Room Air Laboratory Results WBC 19.94K -> 15K -> 16.58K H 16 Plt 304K Cr 0.68 Diagnostic Findings Blood cx (08/18): GPC in clusters (1 of 4: not Staph spp or group A Strep by PCR) L foot surf wound cx (08/18): many GPC MRI L ankle (08/18): Large heel ulcer, measures approximately 4.8 cm mid-lateral by 2.8 cm anteroposterior and is approximately 7 mm deep. No edema of the underlying calcaneus to indicate osteomyelitis. No fluid collection or abscess. Doppler (08/19): No DVT within the left lower extremity. Medications Administered Vancomycin iv and cefepime
--- NOTE | 2023-08-20 13:55 | Hospitalist Progress Note ---
Date of Service August 20, 2023 Assessment & Plan (1) Bacteremia: (2) Left foot infection: Plan: 68-year-old male with history of peripheral vascular disease, COPD, etc. presenting with left foot wound infection. LEFT FOOT WOUND INFECTION IN THE SETTING OF PERIPHERAL VASCULAR DISEASE GRAM POSITIVE BACTEREMIA, COCCI CLUSTERS 2/2 POSITIVE ---Foot x-ray no osteomyelitis ---MRI footLarge heel ulcer, measures approximately 4.8 cm mid-lateral by 2.8 c m, anteroposterior and is approximately 7 mm deep.No edema of the underlying calcaneus to indicate osteomyelitis.No fluid collection or abscess. Vascular duplex done at [facility] on 08/14: Bilateral lower extremity Dopplers with ABIs 0.51 consistent with moderate arterial occlusive disease, L peroneal artery wave form absent Wound culture Blood culture 2/2 + Gram positive cocci repeat blood cultures ordered 08/20 Consult orthopedics/ podiatry Consult infectious disease service -Dr. Monge recommends Vancomycin and cefepime, will switch Dapto to Vanco per rec of ID A1C 6.0 off load wound consult vasc based on abnormal vascular duplex Pt is currently NPO and going to OR today for debridement appreciate Dr. Chau recs, off load heal Hyponatremia improving with IVF IV NSS at 80cc/hr will continue throughout today given NPO status Hypokalemia start on 40meq KCL bid due to continued low K continue to monitor bmp, K stable Peripheral vascular disease needs to be on ASA/Statin Lipid Panel LDL 62, Total Chol 101 hold on ASA until undergoes surgical procedure start low dose atorvastatin and titrate as tolerates Pre Diabetes a1c 6.0 encourage diet/lifestyle modifications diabetes education packets to be provided. 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 Montero, please see addendum Admission and Anticipated Discharge Date Admission Date: August 18, 2023 Supervising Physician Co-Signing Physician Notes Pt seen and examined by dc, care coordinated w/ Shivam Morillo PA-C, pls refer to her note above for further detail. Pt is currently sitting up in bed in [facility]. he is awake alert oriented. No fever, chills, chest pain, or shortness of breath. Denies pain in his heel. Lungs clear to auscultation, heart sounds regular, abdomen soft, nontender. Foot in clean dressings and waffle boot. Underwent debridement at the bedside by Dr. Chau yesterday, plan for OR today. Continue IV Abx - ID consulted. MD Kylah Subjective Pt was seen and examined in room 356-1. F/U L Heel ulcer, bacteremia. He is upset and tired. He states he was not happy with the bedside procedure last night and having to lay on his stomach has made his whole body hurts. He denies f/c/s, chest pain, sob, n/v/d. He is upset and wants to know when he is going to surgery. Review of Systems Review of Systems: All systems reviewed & are unremarkable except as noted in HPI & below Physical Exam Physical Exam: Gen: WD/WN, NAD, A&O x3 HEENT: Normocephalic, atraumatic, conjunctivae moist, sclerae anicteric, mucous membranes moist. Lung: Clear to Auscultation bilaterally, no wheezes/rales/rhonchi Heart: Regular rate, regular rhythm, no murmurs, rubs, or gallops Abdomen: Soft, NT, ND +BS x 4 Extremities: Foul-smelling unstageable left heel ulcer, pictures viewed in chart, dressing currently CDI Skin: Warm, no rash, negative turgor. Results & Data Results & Data Vital Signs (Past 12 Hours) Vital Signs Temp Pulse Resp BP Pulse Ox O2 Del Method 08/20/23 08:20 Room Air 08/20/23 07:38 36.8 C 73 18 115/72 96 Room Air Laboratory Results Short CBC 08/20/23 Range/Units 05:29 WBC 16.58 H (4.8-10.8) K/ul Hgb 16.0 (14.0-18.0) g/dl Hct 44.9 (42.0-52.0) % Plt Count 304 (130-400) K/uL BMP 08/20/23 05:29 Sodium 134 L Potassium 3.6 Chloride 104 Carbon Dioxide 25 BUN 15 Creatinine 0.68 Glucose 107 H Calcium 8.7 Medications Administered Current Inpatient Medications Acetaminophen (Acetaminophen 325 Mg Tab) 650 mg PO Q4H PRN PRN Reason: pain/fever Stop: 09/17/23 21:38 Last Admin: 08/20/23 09:08 Dose: 650 mg Cyanocobalamin (Cyanocobalamin (B-12) 500 Mcg Tablet) 1,000 mcg PO DAILY MAYE Stop: 09/18/23 08:59 Last Admin: 08/20/23 08:28 Dose: 1,000 mcg Folic Acid (Folic Acid 1 Mg Tab) 1 mg PO DAILY MAYE Stop: 09/18/23 08:59 Last Admin: 08/20/23 08:28 Dose: 1 mg Gabapentin (Gabapentin 300 Mg Cap) 900 mg PO TID MAYE Stop: 09/17/23 20:59 Last Admin: 08/20/23 08:28 Dose: 900 mg Sodium Chloride (Nss) 1,000 mls @ 80 mls/hr IV .[id number] MAYE Stop: 09/17/23 18:14 Last Admin: 08/20/23 05:34 Dose: 80 mls/hr Cefepime HCl 2,000 mg/ Syringe 20 mls @ 5 mls/min IV Q8H MAYE; Protocol Stop: 08/26/23 01:59 Last Admin: 08/20/23 10:39 Dose: 5 mls/min Daptomycin 575 mg/ Syringe 11.5 mls @ 3.75 mls/min IV Q24H MAYE; Protocol Stop: 08/27/23 21:59 Lactobacillus Acidophilus (Advanced Probiotic 1250 Mg Capsule) 2 cap PO DAILY MAYE Stop: 09/18/23 08:59 Last Admin: 08/20/23 08:27 Dose: 2 cap Lorazepam (Lorazepam 2 Mg/1 Ml Vial) 1 mg IV ONE PRN; Protocol PRN Reason: EtoH Withdrawal AWSS 6-10 Potassium Chloride (Potassium Chloride Crtab 20 Meq Tabcr) 40 meq PO BID MAYE Stop: 09/18/23 11:14 Last Admin: 08/20/23 08:28 Dose: 40 meq Pregabalin (Pregabalin 25 Mg Cap) 25 mg PO BID MAYE Stop: 09/17/23 20:59 Last Admin: 08/20/23 09:08 Dose: 25 mg Thiamine HCl (Thiamine Hcl 100 Mg Tab) 100 mg PO DAILY MAYE Stop: 09/18/23 08:59 Last Admin: 08/20/23 08:28 Dose: 100 mg
[2023-08-20] MEDS ORDERED: VANCOMYCIN CONSULT ACTIVE PRN (14:04)
--- NOTE | 2023-08-20 14:08 | Anesthesiology Consultation ---
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 Surgery Operation Date: 08/20/23 08:20 Proposed Procedures p Left Heel Wound Debridement - Jose Chau, MARIS, MS Height/Weight Height: 6 ft 8 in Weight: 110.7 kg Allergies Allergy/AdvReac Type Severity Reaction Status Date / Time No Known Allergies Allergy Unverified 08/18/23 10:20 Medications Home Medications Medication Instructions Recorded Confirmed Last Taken cyanocobalamin (vitamin B-12) 1,000 mcg sublingual DAILY 09/11/22 08/18/23 08/18/23 1,000 mcg sublingual lozenge folic acid 1 mg tablet 1 mg PO DAILY 09/11/22 08/18/23 08/18/23 gabapentin 300 mg capsule 900 mg PO TID 09/11/22 08/18/23 08/18/23 hydrochlorothiazide 25 mg tablet 25 mg PO DAILY 09/11/22 08/18/23 08/18/23 indomethacin 50 mg capsule 50 mg PO TID PRN pain 09/11/22 08/18/23 08/18/23 pregabalin 25 mg capsule 25 mg PO BID 09/11/22 08/18/23 08/18/23 thiamine HCl (vitamin B1) 100 mg 100 mg PO DAILY 09/11/22 08/18/23 08/18/23 tablet triamcinolone acetonide 0.1 % 1 applic topical BID 09/11/22 08/18/23 08/12/23 topical ointment acetaminophen 500 mg tablet 1,500 mg PO DAILY PRN Pain 01/24/23 08/18/23 08/18/23 (Tylenol Extra Strength) Active Medications Generic Name Dose Route Start Last Admin Trade Name Freq PRN Reason Stop Dose Admin Acetaminophen 650 mg 08/18/23 21:39 08/20/23 09:08 Acetaminophen 325 Mg Tab PO 09/17/23 21:38 650 mg Q4H PRN Administration pain/fever Cyanocobalamin 1,000 mcg 08/19/23 09:00 08/20/23 08:28 Cyanocobalamin (B-12) 500 Mcg Tablet PO 09/18/23 08:59 1,000 mcg DAILY MAYE Administration Folic Acid 1 mg 08/19/23 09:00 08/20/23 08:28 Folic Acid 1 Mg Tab PO 09/18/23 08:59 1 mg DAILY MAYE Administration Gabapentin 900 mg 08/18/23 21:00 08/20/23 08:28 Gabapentin 300 Mg Cap PO 09/17/23 20:59 900 mg TID MAYE Administration Sodium Chloride 1,000 mls @ 80 mls/hr 08/18/23 18:15 08/20/23 05:34 Nss IV 09/17/23 18:14 80 mls/hr .[id number] MAYE Administration Cefepime HCl 2,000 mg/ Syringe 20 mls @ 5 mls/min 08/19/23 02:00 08/20/23 10:39 IV 08/26/23 01:59 5 mls/min Q8H MAYE Administration Protocol Lactobacillus Acidophilus 2 cap 08/19/23 09:00 08/20/23 08:27 Advanced Probiotic 1250 Mg Capsule PO 09/18/23 08:59 2 cap DAILY MAYE Administration Potassium Chloride 40 meq 08/19/23 11:15 08/20/23 08:28 Potassium Chloride Crtab 20 Meq Tabcr PO 09/18/23 11:14 40 meq BID MAYE Administration Pregabalin 25 mg 08/18/23 21:00 08/20/23 09:08 Pregabalin 25 Mg Cap PO 09/17/23 20:59 25 mg BID MAYE Administration Thiamine HCl 100 mg 08/19/23 09:00 08/20/23 08:28 Thiamine Hcl 100 Mg Tab PO 09/18/23 08:59 100 mg DAILY MAYE Administration Past Medical History Medical History Hearing loss Neuropathy Personal history of alcoholism Past Family History Family History Mother Hypertension Aneurysm of heart Father , age 87 Arterial disease Grandfather (Maternal) Colon cancer, Onset Age: 89 Past Surgical History Surgical History Hx of arthroscopy of left knee meniscus repair Hx of colonoscopy 02/15/11 Hx of colonoscopy 06/01/2020 - prior polyps; S/P bronchoscopy with bronchoalveolar lavage 06/28/22 Social History Smoking Status: Former smoker Do You Dip or Chew Tobacco: No Hx Alcohol Use: Yes Alcohol type: hard liquor alcohol intake frequency: other Alcohol Intake Frequency Comment: 4oz every night Hx Substance Use: Yes substance use type: marijuana Last Used Substance: Days (ago) Physical Exam Vital Signs Last Vital Signs Temp 98.2 F 08/20/23 07:38 Pulse 73 08/20/23 07:38 Resp 18 08/20/23 07:38 BP 115/72 08/20/23 07:38 Pulse Ox 96 08/20/23 07:38 O2 Del Method Room Air 08/20/23 08:20 Testing Laboratory Results 08/20/23 05:29 08/20/23 05:29 PT 12.2 Seconds (9.0-12.0) H 08/18/23 15:32 INR 1.1 (0.9-1.1) 08/18/23 15:32 APTT 28.0 Seconds (21.0-31.0) 08/18/23 15:32 Hemoglobin A1c 6.0 % (4.5-5.6) H 08/19/23 07:43 08/18/23 15:50 Aerobic Blood Culture - Preliminary Blood No growth in Aerobic bottle after 24 hours. Anaerobic Blood Culture - Preliminary Gram positive cocci clusters 08/18/23 15:32 Aerobic Blood Culture - Preliminary Blood No growth in Aerobic bottle after 24 hours. Anaerobic Blood Culture - Preliminary Gram positive cocci clusters Electrocardiogram Date: 08/19/23 Poor data quality, interpretation may be adversely affected Normal sinus rhythm, rate 82 bpm Prolonged QT Abnormal ECG When compared with ECG of 26-DEC-2010 10:04, QT has lengthened Confirmed by Zaheer Jain ([id number]) on 08/19/2023 3:49:30 PM
[2023-08-20] MEDS ORDERED: VANCOMYCIN HCL 2,250 MG in SODIUM CHLORIDE 0.9% 500 ML IV ONE (14:15)
--- NOTE | 2023-08-20 14:48 | Pharmacy Report ---
Pharmacy PK ABX Note - Date of Service August 20, 2023 - Assessment and Plan Assessment 68 year old M receiving Vancomycin and Cefepime for treatment of lower extremity cellulitis and bacteremia. * Today was day #3 of Daptomycin and Cefepime. ID was consulted today and prefers Vancomycin over Daptomycin. So today will be day #1 of Vancomycin. * Blood cultures from 08/18/23 are growing GPCs in clusters indicating staph species in the anaerobic bottles only. BCID2 PCR panel did not detect the species. Repeat blood cultures ordered today. Plan Vancomycin * Loading dose: 2250 mg IV x 1 * Maintenance dose: 1250 mg IV every 12 hours * Regimen is predicted to achieve target AUC/ZORAIDA of 400-600 mg/L.hr * Random level ordered for: 08/22/23 Cefepime * 2000 mg IV every 8 hours Pharmacy will continue to follow and will adjust dose/frequency as necessary. Thank you. Pharmacy has transitioned to AUC monitoring for vancomycin. AUC/ZORAIDA is the preferred PK/PD target and is associated with decreased risk of nephrotoxicity compared to traditional trough targets.
[2023-08-20] MEDS ORDERED: Nursing to Pharmacy Communication SCH (16:00)
--- NOTE | 2023-08-20 16:28 | Ultrasound Report ---
US arterial duplex LE BI HISTORY: 68 years-old Male PAD, ulcers peripheral arterial disease with chronic lower extremity ulce rs COMPARISON: None TECHNIQUE: Multiple real-time sonographic images of the lower extremity arterial structures were obta ined assessing grayscale appearance, color and spectral flow FINDINGS: Diffuse atherosclerosis. RIGHT: Diffuse monophasic waveforms. No flow identified within the superficial femoral artery. A few collate ral vessels are noted which may represent a chronic etiology. No flow identified within the proximal distal aspects of the peroneal artery. Peak systolic velocities within the mid aspect of the vessel m easuring up to 14 cm/s. No flow identified within the mid to distal anterior tibial artery. Peak syst olic velocities of 26 cm/s within the proximal artery. No flow seen within the dorsalis pedis artery. LEFT: Diffuse blunted monophasic waveforms. No flow identified within the superficial femoral artery proxim al to mid segments. No visible flow identified within the proximal peroneal artery. No elevated peak systolic velocities. IMPRESSION: Extensive atherosclerosis with age-indeterminate high-grade stenosis/occlusion of the bilateral lower legs as above. ACT 112: Negative or not required by law. The above report was generated using voice recognition software. It may contain grammatical, syntax o r spelling errors. Electronically signed by: Enrrique Ramos M.D. 08/20/2023 4:26 PM
[2023-08-20] MEDS ORDERED: fentaNYL citrate PF 100 MCG/2 ML VIAL ONE (16:30)
[2023-08-20] MEDS ORDERED: MIDAZOLAM HCL 1 MG/ML 2ML VIAL ONE (16:30)
[2023-08-20] MEDS ORDERED: PROPOFOL IV EMULSION 10 MG/ML 20 ML VIAL IV ONE (16:38)
[2023-08-20] MEDS ORDERED: ONDANSETRON INJ 2 MG/ML 2 ML VIAL ONE (16:38)
[2023-08-20] MEDS ORDERED: DEXAMETHASONE SOD INJ 4 MG/ML VIAL ONE (16:38)
[2023-08-20] MEDS ORDERED: ROCURONIUM BROMIDE 10 MG/ML 5 ML VIAL IV ONE (16:38)
[2023-08-20] MEDS ORDERED: LIDOCAINE 2% 2 ML VIAL/AMP(20MG/ML) INFIL ONE (16:38)
[2023-08-20] MEDS ORDERED: fentaNYL citrate PF 100 MCG/2 ML VIAL IV PRN (16:48)
[2023-08-20] MEDS ORDERED: ONDANSETRON INJ 2 MG/ML 2 ML VIAL IV PRN (16:48)
[2023-08-20] MEDS ORDERED: ATROPINE SULFATE 0.1 MG/ML 10ML SYR IV PRN (16:48)
[2023-08-20] MEDS ORDERED: ePHEDrine sulfate 50 MG/ML AMP IV PRN (16:48)
--- NOTE | 2023-08-20 17:07 | History & Physical Bridge Note ---
Date of Service August 20, 2023 History & Physical Bridge Note I have examined the patient, reviewed the History & Physical and in the interval since the performance of the History & Physical I have noted the following changes of clinical significance: no changes noted
[2023-08-20] MEDS ORDERED: GENTAMICIN SULFATE 40 MG/ML 2 ML VIAL ONE (17:10)
[2023-08-20] MEDS ORDERED: VANCOMYCIN HCL 1000MG/20ML VIAL ONE (17:10)
[2023-08-20] MEDS ORDERED: SUGAMMADEX SODIUM 200 MG/2 ML VIAL IV ONE (17:50)
--- NOTE | 2023-08-20 17:54 | Post Operative Brief Note ---
Immediate Post Op Note v1 Date of Surgery August 20, 2023 Pre & Post Diagnosis Operation Date: 08/20/23 08:20 Pre-Op Diagnosis: Left Heal Ulcer Post-Op Diagnosis: Left Heal Ulcer I identified the patient and participated in the time-out.: Yes Procedure Operation Date: 08/20/23 08:20 Actual Procedures p Left Heel Wound Debridement(Left) - Jose Chau DPM, MS Surgeon Jose Chau DPM, MS Guest Service Supervisor none Estimated Blood Loss 0 Findings Consistent with Post-Op Diagnosis
--- NOTE | 2023-08-20 18:26 | Anesthesiology Progress Note ---
Date of Service August 20, 2023 Anesthesia Post Procedure Vital Signs Vital Signs: Temp Pulse Pulse Resp BP BP Pulse Ox 08/20/23 18:15 81 20 111/85 96 08/20/23 18:09 96.8 F L 79 18 119/79 98 08/20/23 16:37 97.9 F 74 20 133/67 96 08/20/23 08:20 08/20/23 07:38 98.2 F 73 18 115/72 96 08/19/23 21:22 O2 Del Method O2 Flow Rate 08/20/23 18:15 Room Air 08/20/23 18:09 Oxymask 4 08/20/23 16:37 Room Air 08/20/23 08:20 Room Air 08/20/23 07:38 Room Air 08/19/23 21:22 Room Air Pain Intensity Left Foot: Pain Intensity: 4 Transfer of Care Handoff Completed per policy Notes Mental Status: alert / awake / arousable and participated in evaluation Patient Amnestic to Procedure: Yes Nausea / Vomiting: adequately controlled Pain: adequately controlled Airway Patency, RR, SpO2: stable & adequate BP & HR: stable & adequate Hydration State: stable & adequate Anesthetic Complications: no major complications apparent and Pt Satisfied with anesthetic care
--- NOTE | 2023-08-20 21:03 | Operative Report ---
Post Operative Report Pre & Post Diagnosis Operation Date: 08/20/23 08:20 Pre-Op Diagnosis: Left Heal Ulcer Post-Op Diagnosis: Left Heal Ulcer I identified the patient and participated in the time-out.: Yes Procedure Operation Date: 08/20/23 08:20 Actual Procedures p Left Heel Wound Debridement(Left) - Jose Chau DPM, MS Surgeon Jose Chau DPM, MS Computer Science Professor none Estimated Blood Loss 1 Findings Consistent with Post-Op Diagnosis Necrotic left heel Specimens Deep culture swab left foot - microbiology Description of Procedure History of present illness: Patient is a 68-year-old male who is seen for attempted limb salvage, serial OR debridement of left heel neuropathic ulcer. Procedure in detail was discussed as well as postoperative care. All questions were answered. All potential risks, benefits, complications, alternatives, rehab, potential for incomplete relief of symptoms, need for further surgery, DVT, PE, , persistent pain, swelling, scarring, weakness, neurovascular, wound complications and potential for amputations were discussed with patient. Unwanted outcomes such as, but not limited to were reviewed including under correction, overcorrection, return of deformity, infection. All questions were answered. Patient has decided to proceed with procedure as indicated. Preoperative diagnosis: Left foot neuropathic heel wound, necrotic soft tissue Postoperative diagnosis: Same Procedure in detail: 1.) Incision and drainage 2.) Excision of necrotic soft tissue Surgeon: Dr. Chau Computer Science Professor: none Anesthesia: Local monitored anesthesia care Hemostasis: none Estimated blood loss: 15ml Specimens: 1.) Deep culture swab Left foot - Microbiology Procedure in detail: Under mild sedation the patient was brought in the operating room placed on the operating table in supine position. Following sedation the foot and ankle were prepped scrubbed and draped in the usual aseptic manner. Attention was then directed to Left foot diabetic non healing heel wound. The wound measures roughly 8 cm x 6 cm x 3 cm. An excision utilizing a sharp, sterile, #15 blade of non viable, malodorous, necrotic devitalized soft tissue. All bleeders were ligated and cauterized as necessary. At this time adjacent incision was created to the medial plantar region for incision and drainage. No trafficking was noted to wound. Deep culture swab was taken. 3 Liters of Lactate ringer was utilized to flush the wound under low flow on cysto tubing. Stimulan beads containing Vancomycin and Gentamycin powder was placed directly over exposed healthy bleeding bone and soft tissue. The wound was left open and dressed with sterile compressive dressing consisting of adaptic, 4 x 4's Tyler Kerlix ABD. The Patient tolerated procedure and anesthesia well he was transferred to recovery room vital signs stable and vascular status intact all toes of the left foot following. Following a period of postoperative monitoring the patient will be discharged back to floor on the following written and postoperative oral instructions. Keep dressing clean dry and intact, avoid ambulation, elevate left ankle and foot contact Dr. Chau for all postoperative care if any problems arise. I attest to the content of the Intraoperative Record and any orders documented therein. Any exceptions are noted below.
[2023-08-20] MEDS ORDERED: DAPTOmycin 575 MG in SYRINGE 0 ML IV SCH (22:00)
[2023-08-21] MEDS: CEFEPIME 2,000 MG in SYRINGE 0 ML IV SCH ×3 (02:13→17:58)
[2023-08-21] MEDS: VANCOMYCIN HCL 1,250 MG in SODIUM CHLORIDE 0.9% 250 ML IV SCH ×2 (04:51→16:16)
[2023-08-21 08:21] LABS: Basophils # (auto) 0.03 K/uL (0.00-0.20); Basophils % (auto) 0.2 %; Eosinophils # (auto) 0.05 K/uL (0.00-0.50); Eosinophils % (auto) 0.3 %; Hematocrit (blood only) 46.3 % (42.0-52.0); Hemoglobin 16.4 g/dl (14.0-18.0); Immature Granulocytes % (auto) 0.7 %; Lymphocytes # (auto) 0.87 K/uL (1.20-3.40); Lymphocytes % (auto) 5.7 %; Mean Corpuscular Hemoglobin 34.4 pg (25.0-34.0); Mean Corpuscular Hgb Conc 35.4 g/dL (32.0-36.0); Mean Corpuscular Volume 97.1 fL (80.0-100.0); Monocytes # (auto) 1.66 K/uL (0.11-0.59); Monocytes % (auto) 10.9 %; Neutrophils # (auto) 12.45 K/uL (1.40-6.50); Neutrophils % (auto) 82.2 %; Platelet Count 310 K/uL (130-400); RDW Coefficient of Variation 11.8 % (11.5-14.5); RDW Standard Deviation 42.4 fL (36.4-46.3); Red Blood Count 4.77 M/uL (4.70-6.10); White Blood Count 15.16 K/ul (4.8-10.8)
[2023-08-21] MEDS: CYANOCOBALAMIN (B-12) 500 MCG TABLET PO SCH (08:22)
[2023-08-21] MEDS: THIAMINE HCL 100 MG TAB PO SCH (08:22)
[2023-08-21] MEDS: ATORVASTATIN 10 MG TAB PO SCH (08:22)
[2023-08-21] MEDS: POTASSIUM CHLORIDE CRTAB 20 MEQ TABCR PO SCH ×2 (08:22→20:25)
[2023-08-21] MEDS: FOLIC ACID 1 MG TAB PO SCH (08:23)
[2023-08-21] MEDS: SODIUM CHLORIDE 0.9% 1,000 ML IV SCH ×3 (08:23→20:34)
[2023-08-21] MEDS: ADVANCED PROBIOTIC 1250 MG CAPSULE PO SCH (08:23)
[2023-08-21] MEDS: GABAPENTIN 300 MG CAP PO SCH ×3 (08:23→20:19)
[2023-08-21] MEDS: PREGABALIN 25 MG CAP PO SCH ×2 (08:42→20:26)
[2023-08-21 08:46] LABS: Calcium 9.1 mg/dl (8.6-10.3); Potassium 4.4 mmol/L (3.5-5.1)
[2023-08-21 08:51] LABS: Creatinine Clr Calc Pharmacy 154.2 ml/min; Est GFR (African American) 118.3 ml/min; Phosphorus 2.8 mg/dl (2.5-4.9)
[2023-08-21] MEDS ORDERED: OPTIRAY 320 500ml IV ONE (13:54)
--- NOTE | 2023-08-21 15:13 | CT Scan Report ---
CT angio abd pelvis wo/w con HISTORY: 68 years-old Male aiod Acute generalized abdominal pain with arterial disease. COMPARISON: Arterial Doppler 08/20/[address] 07/08/2022. TECHNIQUE: CTA of the abdomen and pelvis was obtained both with and without the use of IV contrast. 3 -D coronal and sagittal MIPS were obtained and submitted for review. All measurements were obtained a ccording to NASCET criteria. FINDINGS: CTA: The heart is normal in size. Zesvbahx-jx-jsoqfkyza atherosclerosis. 50% stenosis at the origin of the celiac trunk with mild poststenotic dilation. Patent superior mesenteric artery. High-grade stenosis at the origin of the inferior mesenteric artery. Patent bilateral renal arteries. Irregular plaque w ithin the bilateral iliac arteries. There is high-grade stenosis at the origin of the right common il iac artery, image 236. Irregular atheromatous and atherosclerotic plaques within the left common kebede tid artery results in stenosis measuring up to approximately 50%. The bilateral common iliac arteries are patent. Age-indeterminate occlusion of the left superficial femoral artery at the origin, image 382. No abdominal aortic aneurysm or dissection. No retroperitoneal hematoma. CT: Emphysema with mild bibasilar atelectasis and bronchial wall thickening. Trace left pleural effusion. Ill-defined area of decreased attenuation involving the posterior inferior spleen is wedge-shaped ex tending to the inferior splenic margin measuring up to 3.3 cm. No significant perisplenic edema. Unre markable pancreas and right adrenal gland. Stable hypodense 3.5 x 2.7 cm left adrenal gland which is likely benign. Unremarkable gallbladder with equivocal cholelithiasis. The liver is within normal rodrigez its. Mild nonspecific bilateral perinephric stranding. No hydronephrosis. Mild urinary bladder wall thicke corbin. Prostatomegaly. Small fat-filled left inguinal hernia. No lymphadenopathy is identified. Small lipoma of the duodenum. No bowel obstruction or bowel wall thickening. Colonic diverticulosis. Normal appendix. Unremarkable soft tissues. No acute fracture. Degenerative changes of the shoulders and spine. Severe joint space narrowing of the left femoral head with probable chronic avascular necr osis, prominent subcortical cystic changes with articular collapse. IMPRESSION: 1. Atherosclerosis with age-indeterminate occlusion of the left superficial femoral artery. 2. High-grade stenosis at the origin of the inferior mesenteric artery. 3. No abdominal aortic aneurysm or dissection. 4. Age-indeterminate splenic infarcts, likely acute or subacute. 5. Chronic appearance of the left hip with articular collapse and severe joint space narrowing. 6. Additional findings as above. ACT 112: Negative or not required by law. The above report was generated using voice recognition software. It may contain grammatical, syntax o r spelling errors. Dictated: 08/21/2023 2:22 PM Transcribed: 08/21/2023 3:05 PM Hong [id number] [email or web address] Electronically signed by: Enrrique Ramos M.D. 08/21/2023 3:11 PM
[2023-08-21] MEDS: ACETAMINOPHEN 325 MG TAB PO PRN (15:19)
--- NOTE | 2023-08-21 17:04 | Hospitalist Progress Note ---
Date of Service August 21, 2023 Assessment & Plan (1) Bacteremia: (2) Left foot infection: Plan: 68-year-old male with history of peripheral vascular disease, COPD, etc. presenting with left foot wound infection. LEFT FOOT WOUND INFECTION IN THE SETTING OF PERIPHERAL VASCULAR DISEASE GRAM POSITIVE BACTEREMIA, COCCI CLUSTERS 2/2 POSITIVE ---Foot x-ray no osteomyelitis ---MRI footLarge heel ulcer, measures approximately 4.8 cm mid-lateral by 2.8 c m, anteroposterior and is approximately 7 mm deep.No edema of the underlying calcaneus to indicate osteomyelitis.No fluid collection or abscess. V[facility] duplex done at [facility] on 08/14: Bilateral lower extremity Dopplers with ABIs 0.51 consistent with moderate arterial occlusive disease, L peroneal artery wave form absent Wound culture Blood culture 2/2 + Gram positive cocci repeat blood cultures ordered 08/20 prelim without growth Consult infectious disease service -Dr. Monge recommends Vancomycin and cefepime, will switch Dapto to Vanco per rec of ID Continue to off load wound S/p L heel wound debridement last evening by Dr. Chau, cultures pending PAD High grade stenosis of BLE seen on BLE arterial duplex Vascular surgery ordered abd CTA revealing atherosclerosis with age- indeterminate occlusion of the left superficial femoral artery. High-grade stenosis at the origin of the inferior mesenteric artery. No abdominal aortic aneurysm or dissection. Age-indeterminate splenic infarcts Appreciate further input Ok to start aspirin post procedure per Dr. Chau, continue statin Hyponatremia -> resolved improving with IVF IV NSS at 80cc/hr will continue throughout today given NPO status Hypokalemia -> resolved start on 40meq KCL bid due to continued low K continue to monitor bmp, K stable Peripheral vascular disease needs to be on ASA/Statin Lipid Panel LDL 62, Total Chol 101 Hold on ASA until undergoes surgical procedure Start low dose atorvastatin and titrate as tolerates Pre Diabetes a1c 6.0 encourage diet/lifestyle modifications diabetes education packets to be provided COPD w/o exac no O2 requirement adding duonebs QIDR PRN SOB or wheezing Alcohol Use states he drink 2x/week 4oz will order Alc With Protocol with PRN Ativan thiamine and folic acid Smoker declines Nicotine patch cessation strongly advised 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 Chau - SQ lovenox Pt was seen and examined in collaboration with Dr. Montero, please see addendum Admission and Anticipated Discharge Date Admission Date: August 18, 2023 Supervising Physician Co-Signing Physician Notes Pt seen and examined by me, care coordinated w/ Marilu Fajardo PA-C, pls refer to her note above for further detail. Pt is currently sitting up in bed in NAD. he is awake alert oriented. No fever, chills, chest pain, or shortness of breath. Denies pain in his heel. Lungs clear to auscultation, heart sounds regular, abdomen soft, nontender. Foot in clean dressings and waffle boot. Underwent I&D, excision of necrotic soft tissue in OR yesterday by Dr. Chau. Continue IV Abx , await cultx from OR- ID consulted. vasc. surg. consulted - abdomen/pelvis CTA obtained. MD Kylah Subjective Pt was seen and examined in room 356-1. F/U L Heel ulcer, bacteremia. Underwent debridement with Dr. Chau in the OR last evening, cultures pending. Denies any other new symptoms overnight. Comfortable at this time. Tolerating diet without any issues. Denies f/c/s, chest pain, sob, n/v/d. Review of Systems Review of Systems: At least ten systems reviewed and negative except as noted in the HPI. Physical Exam Physical Exam: Gen: WD/WN, NAD, resting in bed comfortably, A&Ox3 HEENT: Normocephalic, atraumatic, conjunctivae moist, sclerae anicteric, mucous membranes moist Lung: +Rhonchi scattered, some expiratory wheezes, no rales, normal work of breathing Heart: Regular rate, regular rhythm, no murmurs, rubs, or gallops Abdomen: Soft, NT, ND +BS x 4 Extremities: L foot dressing c/d/i, offloaded, NVI, no edema Skin: Warm, no rash Results & Data Results & Data Vital Signs (Past 12 Hours) Vital Signs Temp Pulse Resp BP Pulse Ox O2 Del Method 08/21/23 15:14 36.5 C 70 18 126/80 95 Room Air 08/21/23 07:46 36.4 C L 64 18 137/79 95 Room Air Laboratory Results Short CBC 08/21/23 Range/Units 07:42 WBC 15.16 H (4.8-10.8) K/ul Hgb 16.4 (14.0-18.0) g/dl Hct 46.3 (42.0-52.0) % Plt Count 310 (130-400) K/uL BMP 08/21/23 07:42 Sodium 136 Potassium 4.4 D Chloride 109 H Carbon Dioxide 22 BUN 16 Creatinine 0.64 Glucose 90 Calcium 9.1 Diagnostic Findings Foot X-Ray 08/18/23 14:33 XR foot LT min 3V routine HISTORY: 68 years-old Male L foot pain, wound chronic left foot pain COMPARISON: None TECHNIQUE: 3 views of the left foot FINDINGS: Demineralized appearance of the bones. Soft tissue swelling is most pronounced in the dorsal forefoot. Mild to moderate osteoarthritis. No acute fracture, dislocation or opaque foreign body identified. No osseous erosions are seen. IMPRESSION: Soft tissue swelling without acute osseous abnormality identified. ACT 112: Negative or not required by law. The above report was generated using voice recognition software. It may contain grammatical, syntax or spelling errors. Electronically signed by: Enrrique Ramos M.D. 08/18/2023 3:43 PM Ankle MRI 08/18/23 17:25 Exam(s): MRI LEFT ANKLE Without Contrast EXAM: MR Left Lower Extremity Without Intravenous Contrast, Ankle CLINICAL HISTORY: Reason for exam: r/o osteomyelitis. TECHNIQUE: Multiplanar magnetic resonance images of the left ankle without intravenous contrast. COMPARISON: No relevant prior studies available. FINDINGS: Intact tibiotalar, subtalar, calcaneocuboid, talonavicular joints. Intact distal Achilles tendon. Mild fluid posterior to the ankle joint. Moderate thickening of the medial cord of plantar fascia, but small heel spur. Large heel ulcer, measures approximately 4.8 cm mid-lateral by 2.8 cm anteroposterior and is approximately 7 mm deep. No edema of the underlying calcaneus to indicate osteomyelitis. No fluid collection or abscess. Mild posterior tibial tenosynovitis. Moderate flexor houses longus tenosynovitis. Bilateral peroneal tenosynovitis. Intact anterior extensor tendons. Circumferential subcutaneous edema. Intact deltoid ligament, which is mildly scarred. No osteochondral lesion of the talar dome. IMPRESSION: Large heel ulcer, measures approximately 4.8 cm mid-lateral by 2.8 cm anteroposterior and is approximately 7 mm deep. No edema of the underlying calcaneus to indicate osteomyelitis. No fluid collection or abscess. Electronically signed by: Ari Batista MD 08/18/23 20:54 PM Venous Doppler Study 08/19/23 00:00 LEFT LOWER EXTREMITY VENOUS DOPPLER HISTORY: Acute pain and swelling of the left lower leg edema, r/o dvt COMPARISON STUDY: None. FINDINGS: There is normal compressibility, flow, and augmentation within the left lower extremity deep venous system. IMPRESSION: No DVT within the left lower extremity. ACT 112: Negative or not required by law. Electronically signed by: Enrrique Ramos M.D. 08/19/2023 9:41 AM Duplex Scan Lower Extremity Artery 08/20/23 11:51 US arterial duplex LE BI HISTORY: 68 years-old Male PAD, ulcers peripheral arterial disease with chronic lower extremity ulcers COMPARISON: None TECHNIQUE: Multiple real-time sonographic images of the lower extremity arterial structures were obtained assessing grayscale appearance, color and spectral flow FINDINGS: Diffuse atherosclerosis. RIGHT: Diffuse monophasic waveforms. No flow identified within the superficial femoral artery. A few collateral vessels are noted which may represent a chronic etiology. No flow identified within the proximal distal aspects of the peroneal artery. Peak systolic velocities within the mid aspect of the vessel measuring up to 14 cm/s. No flow identified within the mid to distal anterior tibial artery. Peak systolic velocities of 26 cm/s within the proximal artery. No flow seen within the dorsalis pedis artery. LEFT: Diffuse blunted monophasic waveforms. No flow identified within the superficial femoral artery proximal to mid segments. No visible flow identified within the proximal peroneal artery. No elevated peak systolic velocities. IMPRESSION: Extensive atherosclerosis with age-indeterminate high-grade stenosis/occlusion of the bilateral lower legs as above. ACT 112: Negative or not required by law. The above report was generated using voice recognition software. It may contain grammatical, syntax or spelling errors. Electronically signed by: Enrrique Ramos M.D. 08/20/2023 4:26 PM Abdomen/Pelvis CTA 08/21/23 10:16 CT angio abd pelvis wo/w con HISTORY: 68 years-old Male aiod Acute generalized abdominal pain with arterial disease. COMPARISON: Arterial Doppler 08/20/[address] 07/08/2022. TECHNIQUE: CTA of the abdomen and pelvis was obtained both with and without the use of IV contrast. 3-D coronal and sagittal MIPS were obtained and submitted for review. All measurements were obtained according to NASCET criteria. FINDINGS: CTA: The heart is normal in size. Eupunmyd-yn-hddczdflq atherosclerosis. 50% stenosis at the origin of the celiac trunk with mild poststenotic dilation. Patent superior mesenteric artery. High-grade stenosis at the origin of the inferior mesenteric artery. Patent bilateral renal arteries. Irregular plaque within the bilateral iliac arteries. There is high-grade stenosis at the origin of the right common iliac artery, image 236. Irregular atheromatous and atherosclerotic plaques within the left common carotid artery results in stenosis measuring up to approximately 50%. The bilateral common iliac arteries are patent. Age- indeterminate occlusion of the left superficial femoral artery at the origin, image 382. No abdominal aortic aneurysm or dissection. No retroperitoneal hematoma. CT: Emphysema with mild bibasilar atelectasis and bronchial wall thickening. Trace left pleural effusion. Ill-defined area of decreased attenuation involving the posterior inferior spleen is wedge-shaped extending to the inferior splenic margin measuring up to 3.3 cm. No significant perisplenic edema. Unremarkable pancreas and right adrenal gland. Stable hypodense 3.5 x 2.7 cm left adrenal gland which is likely benign. Unremarkable gallbladder with equivocal cholelithiasis. The liver is within normal limits. Mild nonspecific bilateral perinephric stranding. No hydronephrosis. Mild urinary bladder wall thickening. Prostatomegaly. Small fat-filled left inguinal hernia. No lymphadenopathy is identified. Small lipoma of the duodenum. No bowel obstruction or bowel wall thickening. Colonic diverticulosis. Normal appendix. Unremarkable soft tissues. No acute fracture. Degenerative changes of the shoulders and spine. 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 IMPRESSION: 1. Atherosclerosis with age-indeterminate occlusion of the left superficial femoral artery. 2. High-grade stenosis at the origin of the inferior mesenteric artery. 3. No abdominal aortic aneurysm or dissection. 4. Age-indeterminate splenic infarcts, likely acute or subacute. 5. Chronic appearance of the left hip with articular collapse and severe joint space narrowing. 6. Additional findings as above. ACT 112: Negative or not required by law. The above report was generated using voice recognition software. It may contain grammatical, syntax or spelling errors. Dictated: 08/21/2023 2:22 PM Transcribed: 08/21/2023 3:05 PM Hong [id number] [email or web address] Electronically signed by: Enrrique Ramos M.D. 08/21/2023 3:11 PM
[2023-08-21] MEDS ORDERED: ALBUT/IPRATROP 3MG/0.5MG NEB 3 ML VIAL NEB PRN (17:51)
[2023-08-22] MEDS: CEFEPIME 2,000 MG in SYRINGE 0 ML IV SCH ×3 (01:53→18:08)
[2023-08-22] MEDS: VANCOMYCIN HCL 1,250 MG in SODIUM CHLORIDE 0.9% 250 ML IV SCH ×2 (04:03→16:00)
[2023-08-22] MEDS: ATORVASTATIN 10 MG TAB PO SCH (08:40)
[2023-08-22] MEDS: ASPIRIN 81 MG ECTAB PO SCH (08:40)
[2023-08-22] MEDS: FOLIC ACID 1 MG TAB PO SCH (08:41)
[2023-08-22] MEDS: THIAMINE HCL 100 MG TAB PO SCH (08:41)
[2023-08-22] MEDS: GABAPENTIN 300 MG CAP PO SCH ×3 (08:41→20:36)
[2023-08-22] MEDS: CYANOCOBALAMIN (B-12) 500 MCG TABLET PO SCH (08:41)
[2023-08-22] MEDS: ADVANCED PROBIOTIC 1250 MG CAPSULE PO SCH (08:42)
[2023-08-22] MEDS: ENOXAPARIN INJ 40 MG/0.4 ML SYR SQ SCH (08:48)
[2023-08-22] MEDS: POTASSIUM CHLORIDE CRTAB 20 MEQ TABCR PO SCH ×2 (08:53→20:36)
[2023-08-22] MEDS: PREGABALIN 25 MG CAP PO SCH ×2 (08:53→20:54)
[2023-08-22 09:02] LABS: Hematocrit (blood only) 48.2 % (42.0-52.0); Hemoglobin 16.9 g/dl (14.0-18.0); Mean Corpuscular Hgb Conc 35.1 g/dL (32.0-36.0); Mean Platelet Volume 10.5 fL (9.4-12.4); Platelet Count 317 K/uL (130-400); Red Blood Count 4.97 M/uL (4.70-6.10)
[2023-08-22 09:14] LABS: Calcium 9.3 mg/dl (8.6-10.3); Magnesium 1.9 mg/dl (1.7-2.4); Potassium 4.6 mmol/L (3.5-5.1)
[2023-08-22 09:20] LABS: BUN Creatinine Ratio 20.3 (10-20); Est GFR (African American) 114.7 ml/min; Est GFR (Non-African American) 98.9 ml/min; Phosphorus 2.3 mg/dl (2.5-4.9)
[2023-08-22] MEDS: SODIUM CHLORIDE 0.9% 1,000 ML IV SCH (10:43)
--- NOTE | 2023-08-22 12:35 | Consultation ---
Date of Consultation August 22, 2023 Assessment & Plan (1) Aortoiliac stenosis: Pt with significant BL iliac disease, as well as PAD. Pt discussed with Dr Lew. D/T LLE heel ulcer and osteomyelitis, pt may benefit from arteriogram with BL iliac stenting and LLE angio with possible intervention. Would plan for Friday. Procedure discussed with pt, he does not wish to stay in hospital, but is also unsure whether he can get a ride to/from hospital on Friday to have it done as outpt. If pt is discharged, procedure can be done as outpt, would have pt arrive at 0800 friday morning and be NPO after midnight Friday night. Please call if needed. History of Present Illness Reason for Consultation: PAD Attending Physician: Renard Montero MD History of Present Illness 68 yo M with multiple medical problems, including lung ca, HTN, peripheral neuropathy, admitted with L heel ulceration, seen in consultation today for PAD. Pt states he developed a L heel ulcer, but does not know how it started. Noted it 3 weeks ago, but only sought medical attention last week. Pt underwent debridement of L heel osteomyelitis by Dr Chau 2 days ago. Admits BL thigh and calf claudication Denies MOSQUERA, fever, chest pain, SOB, abd pain, N/V, rest pain, prior nonhealing ulcers, other complaints. Arterial US demonstrates significant BLE arterial disease CTA demonstrates significant aortoiliac occlusive disease and PAD. Allergies Allergy/AdvReac Type Severity Reaction Status Date / Time No Known Allergies Allergy Unverified 08/18/23 10:20 Home Medications Medication Instructions Recorded Confirmed Type cyanocobalamin (vitamin B-12) 1,000 mcg sublingual DAILY 09/11/22 08/18/23 History 1,000 mcg sublingual lozenge folic acid 1 mg tablet 1 mg PO DAILY 09/11/22 08/18/23 History gabapentin 300 mg capsule 900 mg PO TID 09/11/22 08/18/23 History hydrochlorothiazide 25 mg tablet 25 mg PO DAILY 09/11/22 08/18/23 History indomethacin 50 mg capsule 50 mg PO TID PRN pain 09/11/22 08/18/23 History pregabalin 25 mg capsule 25 mg PO BID 09/11/22 08/18/23 History thiamine HCl (vitamin B1) 100 mg 100 mg PO DAILY 09/11/22 08/18/23 History tablet triamcinolone acetonide 0.1 % 1 applic topical BID 09/11/22 08/18/23 History topical ointment acetaminophen 500 mg tablet 1,500 mg PO DAILY PRN Pain 01/24/23 08/18/23 History (Tylenol Extra Strength) Patient History Medical History Hearing loss Neuropathy Personal history of alcoholism Surgical History Hx of arthroscopy of left knee meniscus repair Hx of colonoscopy 02/15/11 Hx of colonoscopy 06/01/2020 - prior polyps; S/P bronchoscopy with bronchoalveolar lavage 06/28/22 Family History Mother Hypertension Aneurysm of heart Father , age 87 Arterial disease Grandfather (Maternal) Colon cancer, Onset Age: 89 Social History Smoking Status: Former smoker Tobacco Type: Cigarettes Age Started Using Tobacco: 22; packs per day: 1; Second Hand Exposure: Yes; Do You Dip or Chew Tobacco: No; Hx Alcohol Use: Yes Alcohol type: hard liquor Alcohol type Comment: 3-4 oz mixed whiskey per day Alcohol Intake Frequency: 4 or More x per/Week Hx Substance Use: Yes Prescribed Medications: Marijuana Last Used Substance: Days (ago) Preferred Language: Martiniquais Communication Ability: Effective Back Tender Required: No Beliefs That Will Affect Care: None marital status: Current Living Situation: Spouse current occupational status: disabled 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; contractor Other Information That Helps Us Care for You: No Feels Safe at Home: Yes Safety Concerns: Feels Safe At This Time Assistive Devices: Cane, Walker and Wheelchair Review of Systems Review of Systems: All systems reviewed & are unremarkable except as noted in HPI & below Physical Exam Constitutional: WD/WN, vitals as above cooperative and comfortable; not in distress ENMT: Ears: no hearing impairment Neck: trachea midline Respiratory: normal respiratory effort, lungs clear to auscultation Auscultation: + diminished lung sounds Cardiovascular: Rate/Rhythm: regular rate and regular rhythm Vessels: femoral pulses present (LLE +2, RLE nonpalpable), posterior tibial pulses present (dopplerable RLE, LLE dressing over area) and dorsalis pedis pulses present (RLE dopplerable, LLE dopplerable to toe); + abnormal peripheral pulses Extremities: + abnormal capillary refill (RLE normal, LLE 5 seconds) Gastrointestinal (Abdomen): Inspection/Auscultation: abdomen normal to inspection and normal bowel sounds Percussion/Palpation: abdomen soft; abdomen nontender Musculoskeletal: no cyanosis or clubbing, extremities motor strength 5/5 Skin: no rashes, warm and dry + wound (LLE dressing in place) Neurologic: moves all extremities and awake; no focal motor deficits and not confused Psychiatric: A+Ox3, euthymic affect Results & Data Vital Signs (Past 12 Hours) Vital Signs Temp Pulse Resp BP Pulse Ox O2 Del Method 08/22/23 07:40 Room Air 08/22/23 07:03 36.6 C 66 15 139/82 94 Room Air
--- NOTE | 2023-08-22 13:48 | Pharmacy Report ---
Pharmacy PK ABX Note - Date of Service August 22, 2023 - Assessment and Plan Assessment 68 year old M receiving Vancomycin and Cefepime for treatment of lower extremity cellulitis and bacteremia. * Today was day #5 of Cefepime and Day #3 of Vancomycin. I * Blood cultures from 08/18/23 are growing GPCs in clusters indicating staph species in the anaerobic bottles only. BCID2 PCR panel did not detect the species. Repeat blood cultures with no growth to date. Plan Vancomycin * Current regimen: 1250 mg IV every 12 hours * Random level obtained 08/22/23 resulted as 14.5 mcg/mL. This is predicted to achieve target AUC/ZORAIDA of 400-600 mg/L.hr * Predicted AUC at steady state: 416 mg/L.hr * Continue 1250 mg IV every 12 hours * Repeat random level ordered for: 08/24/23 Cefepime * 2000 mg IV every 8 hours Pharmacy will continue to follow and will adjust dose/frequency as necessary. Thank you. Pharmacy has transitioned to AUC monitoring for vancomycin. AUC/ZORAIDA is the preferred PK/PD target and is associated with decreased risk of nephrotoxicity compared to traditional trough targets.
--- NOTE | 2023-08-22 18:32 | Hospitalist Progress Note ---
Date of Service August 22, 2023 Assessment & Plan (1) Left foot infection: Plan: This is a 68-year-old male with history of peripheral vascular disease, COPD, etc. presenting with left foot wound infection and found to have bacteremia. Bacteremia Left foot infection GRAM POSITIVE BACTEREMIA, COCCI CLUSTERS 2/2 POSITIVE MRI footLarge heel ulcer, measures approximately 4.8 cm mid-lateral by 2.8 cm, anteroposterior and is approximately 7 mm deep.No edema of the underlying calcaneus to indicate osteomyelitis.No fluid collection or abscess. Complicated by PAD, see below Blood culture from 08/18 "Prob. román gram positive cocci" on 2/2 cultures Repeat blood cultures ordered 08/20 prelim without growth S/p L heel wound debridement 08/[address] Chau OR cultures from 08/20 with pinpoint growth, reincubating Per ID, Dr. Monge recommends Vancomycin and cefepime with final recs to come once OR cultures finalize. Likely to need 14d course Continue to off load wound PAD Aortoiliac stenosis High grade stenosis of BLE seen on BLE arterial duplex Vascular surgery ordered abd CTA revealing atherosclerosis with age- indeterminate occlusion of the left superficial femoral artery. High-grade stenosis at the origin of the inferior mesenteric artery. No abdominal aortic aneurysm or dissection Vascular surgery feels patient will benefit from arteriogram with BL iliac stenting and LLE angio with possible intervention Planning for OR Friday NPO after midnight Friday night Continue aspirin, statin Pre Diabetes A1c 6.0 encourage diet/lifestyle modifications diabetes education packets to be provided COPD Chronic; stable. 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 Full Code DVT Prophylaxis- SQ lovenox (last dose Friday, then will need to be held for OR Friday) Pt was seen and examined in collaboration with Dr. Montero, please see addendum Admission and Anticipated Discharge Date Admission Date: August 18, 2023 Supervising Physician Co-Signing Physician Notes Pt seen and examined by me, care coordinated w/ Marilu Fajardo PA-C, pls refer to her note above for further detail. Pt is currently sitting up in bed in NAD. he is awake alert oriented. No fever, chills, chest pain, or shortness of breath. Denies pain in his heel. Lungs clear to auscultation, heart sounds regular, abdomen soft, nontender. Foot in clean dressings and waffle boot. Underwent I&D, excision of necrotic soft tissue in OR by Dr. Chau. Continue IV Abx , await cultx from OR- ID consulted. vasc. surg. consulted - abdomen/pelvis CTA obtained. Plan for vasc. surg. intervention on Friday. MD Kylah Subjective P t was seen and examined in room 356-1. F/U L Heel ulcer, bacteremia. Underwent debridement with Dr. Chau in the OR 08/20, cultures pending. Denies any other new symptoms overnight. Comfortable at this time. Tolerating diet without any issues. Denies f/c/s, chest pain, sob, n/v/d. Review of Systems Review of Systems: At least ten systems reviewed and negative except as noted in the HPI. Physical Exam Physical Exam: Gen: WD/WN, NAD, resting in bed comfortably, A&Ox3 HEENT: Normocephalic, atraumatic, conjunctivae moist, sclerae anicteric, mucous membranes moist Lung: +Rhonchi scattered, some expiratory wheezes, no rales, normal work of breathing Heart: Regular rate, regular rhythm, no murmurs, rubs, or gallops Abdomen: Soft, NT, ND +BS x 4 Extremities: L foot dressing c/d/i, offloaded, NVI, no edema Skin: Warm, no rash Results & Data Results & Data Vital Signs (Past 12 Hours) Vital Signs Temp Pulse Resp BP Pulse Ox O2 Del Method 08/22/23 14:52 36.7 C 70 14 135/83 96 Room Air 08/22/23 07:40 Room Air 08/22/23 07:03 36.6 C 66 15 139/82 94 Room Air Laboratory Results Short CBC 08/22/23 Range/Units 07:39 WBC 14.40 H (4.8-10.8) K/ul Hgb 16.9 (14.0-18.0) g/dl Hct 48.2 (42.0-52.0) % Plt Count 317 (130-400) K/uL BMP 08/22/23 07:39 Sodium 134 L Potassium 4.6 Chloride 106 Carbon Dioxide 22 BUN 14 Creatinine 0.69 Glucose 81 Calcium 9.3 Diagnostic Findings Foot X-Ray 08/18/23 14:33 XR foot LT min 3V routine HISTORY: 68 years-old Male L foot pain, wound chronic left foot pain COMPARISON: None TECHNIQUE: 3 views of the left foot FINDINGS: Demineralized appearance of the bones. Soft tissue swelling is most pronounced in the dorsal forefoot. Mild to moderate osteoarthritis. No acute fracture, dislocation or opaque foreign body identified. No osseous erosions are seen. IMPRESSION: Soft tissue swelling without acute osseous abnormality identified. ACT 112: Negative or not required by law. The above report was generated using voice recognition software. It may contain grammatical, syntax or spelling errors. Electronically signed by: Enrrique Ramos M.D. 08/18/2023 3:43 PM Ankle MRI 08/18/23 17:25 Exam(s): MRI LEFT ANKLE Without Contrast EXAM: MR Left Lower Extremity Without Intravenous Contrast, Ankle CLINICAL HISTORY: Reason for exam: r/o osteomyelitis. TECHNIQUE: Multiplanar magnetic resonance images of the left ankle without intravenous contrast. COMPARISON: No relevant prior studies available. FINDINGS: Intact tibiotalar, subtalar, calcaneocuboid, talonavicular joints. Intact distal Achilles tendon. Mild fluid posterior to the ankle joint. Moderate thickening of the medial cord of plantar fascia, but small heel spur. Large heel ulcer, measures approximately 4.8 cm mid-lateral by 2.8 cm anteroposterior and is approximately 7 mm deep. No edema of the underlying calcaneus to indicate osteomyelitis. No fluid collection or abscess. Mild posterior tibial tenosynovitis. Moderate flexor houses longus tenosynovitis. Bilateral peroneal tenosynovitis. Intact anterior extensor tendons. Circumferential subcutaneous edema. Intact deltoid ligament, which is mildly scarred. No osteochondral lesion of the talar dome. IMPRESSION: Large heel ulcer, measures approximately 4.8 cm mid-lateral by 2.8 cm anteroposterior and is approximately 7 mm deep. No edema of the underlying calcaneus to indicate osteomyelitis. No fluid collection or abscess. Electronically signed by: rAi Batista MD 08/18/23 20:54 PM Venous Doppler Study 08/19/23 00:00 LEFT LOWER EXTREMITY VENOUS DOPPLER HISTORY: Acute pain and swelling of the left lower leg edema, r/o dvt COMPARISON STUDY: None. FINDINGS: There is normal compressibility, flow, and augmentation within the left lower extremity deep venous system. IMPRESSION: No DVT within the left lower extremity. ACT 112: Negative or not required by law. Electronically signed by: Enrrique Ramos M.D. 08/19/2023 9:41 AM Duplex Scan Lower Extremity Artery 08/20/23 11:51 US arterial duplex LE BI HISTORY: 68 years-old Male PAD, ulcers peripheral arterial disease with chronic lower extremity ulcers COMPARISON: None TECHNIQUE: Multiple real-time sonographic images of the lower extremity arterial structures were obtained assessing grayscale appearance, color and spectral flow FINDINGS: Diffuse atherosclerosis. RIGHT: Diffuse monophasic waveforms. No flow identified within the superficial femoral artery. A few collateral vessels are noted which may represent a chronic etiology. No flow identified within the proximal distal aspects of the peroneal artery. Peak systolic velocities within the mid aspect of the vessel measuring up to 14 cm/s. No flow identified within the mid to distal anterior tibial artery. Peak systolic velocities of 26 cm/s within the proximal artery. No flow seen within the dorsalis pedis artery. LEFT: Diffuse blunted monophasic waveforms. No flow identified within the superficial femoral artery proximal to mid segments. No visible flow identified within the proximal peroneal artery. No elevated peak systolic velocities. IMPRESSION: Extensive atherosclerosis with age-indeterminate high-grade stenosis/occlusion of the bilateral lower legs as above. ACT 112: Negative or not required by law. The above report was generated using voice recognition software. It may contain grammatical, syntax or spelling errors. Electronically signed by: Enrrique Ramos M.D. 08/20/2023 4:26 PM Abdomen/Pelvis CTA 08/21/23 10:16 CT angio abd pelvis wo/w con HISTORY: 68 years-old Male aiod Acute generalized abdominal pain with arterial disease. COMPARISON: Arterial Doppler 08/20/[address] 07/08/2022. TECHNIQUE: CTA of the abdomen and pelvis was obtained both with and without the use of IV contrast. 3-D coronal and sagittal MIPS were obtained and submitted for review. All measurements were obtained according to NASCET criteria. FINDINGS: CTA: The heart is normal in size. [id number] atherosclerosis. 50% stenosis at the origin of the celiac trunk with mild poststenotic dilation. Patent superior mesenteric artery. High-grade stenosis at the origin of the inferior mesenteric artery. Patent bilateral renal arteries. Irregular plaque within the bilateral iliac arteries. There is high-grade stenosis at the origin of the right common iliac artery, image 236. Irregular atheromatous and atherosclerotic plaques within the left common carotid artery results in stenosis measuring up to approximately 50%. The bilateral common iliac arteries are patent. Age- indeterminate occlusion of the left superficial femoral artery at the origin, image 382. No abdominal aortic aneurysm or dissection. No retroperitoneal hematoma. CT: Emphysema with mild bibasilar atelectasis and bronchial wall thickening. Trace left pleural effusion. Ill-defined area of decreased attenuation involving the posterior inferior spleen is wedge-shaped extending to the inferior splenic margin measuring up to 3.3 cm. No significant perisplenic edema. Unremarkable pancreas and right adrenal gland. Stable hypodense 3.5 x 2.7 cm left adrenal gland which is likely benign. Unremarkable gallbladder with equivocal cholelithiasis. The liver is within normal limits. Mild nonspecific bilateral perinephric stranding. No hydronephrosis. Mild urinary bladder wall thickening. Prostatomegaly. Small fat-filled left inguinal hernia. No lymphadenopathy is identified. Small lipoma of the duodenum. No bowel obstruction or bowel wall thickening. Colonic diverticulosis. Normal appendix. Unremarkable soft tissues. No acute fracture. Degenerative changes of the shoulders and spine. 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 IMPRESSION: 1. Atherosclerosis with age-indeterminate occlusion of the left superficial femoral artery. 2. High-grade stenosis at the origin of the inferior mesenteric artery. 3. No abdominal aortic aneurysm or dissection. 4. Age-indeterminate splenic infarcts, likely acute or subacute. 5. Chronic appearance of the left hip with articular collapse and severe joint space narrowing. 6. Additional findings as above. ACT 112: Negative or not required by law. The above report was generated using voice recognition software. It may contain grammatical, syntax or spelling errors. Dictated: 08/21/2023 2:22 PM Transcribed: 08/21/2023 3:05 PM Hong [id number] [email or web address] Electronically signed by: Enrrique Ramos M.D. 08/21/2023 3:11 PM
[2023-08-23] MEDS: CEFEPIME 2,000 MG in SYRINGE 0 ML IV SCH ×3 (02:58→18:22)
[2023-08-23] MEDS: VANCOMYCIN HCL 1,250 MG in SODIUM CHLORIDE 0.9% 250 ML IV SCH ×2 (03:04→16:00)
[2023-08-23] MEDS: GABAPENTIN 300 MG CAP PO SCH ×3 (08:23→20:30)
--- NOTE | 2023-08-23 08:23 | Orthopedic Progress Note ---
Date of Service August 22, 2023 Assessment & Plan (1) Left foot infection: Plan: Patient was seen and examined at bedside in room 356-1. Patient is status post day #2 Left heel wound excision and application of antibiotic beads. Manners in which pressure reduction could be achieved were investigated and initiated. Patient is in waffle boot with pillows under leg. Off-loading is a critical part of this patient's management. Factors which likely contribute to non-healing include lack of adequate off- loading when supine, inadequately controlled infection, lack of adequate off- loading when ambulating. Will continue to follow. Thank you for allowing me to participate in the care of this Patient. (2) Ulcer of left heel: Admission and Anticipated Discharge Date Admission Date: August 18, 2023 Subjective Patient was seen and examined at bedside in room 356-1. Patient status post day #2 Left heel wound excision and application of antibiotic beads. Review of Systems Review of Systems: All systems reviewed & are unremarkable except as noted in HPI & below Physical Exam Constitutional: well developed and cooperative Eyes: normal visual king by confrontation Neck: trachea midline Respiratory: normal respiratory effort Cardiovascular: Rate/Rhythm: regular rate and regular rhythm Vessels: posterior tibial pulses present and dorsalis pedis pulses present Musculoskeletal: Extremities: extremities normal to inspection and strength 5/5 throughout Skin: + ulcer (Left heel ulcer full thickness wound exposed muscle, Abx beads ) and + erythema (left heel wound with edema) Neurologic: moves all extremities (Decreased epicritic sensation) Psychiatric: Orientation: alert and oriented x 3 Results & Data Vital Signs (Past 12 Hours) Vital Signs Temp Pulse Resp BP BP Pulse Ox O2 Del Method 08/23/23 08:08 36.3 C L 76 16 137/82 96 Room Air 08/23/23 07:20 Room Air 08/22/23 20:31 36.3 C L 72 18 134/86 97 Room Air
[2023-08-23] MEDS: POTASSIUM CHLORIDE CRTAB 20 MEQ TABCR PO SCH ×2 (08:24→20:28)
[2023-08-23] MEDS: ASPIRIN 81 MG ECTAB PO SCH (08:24)
[2023-08-23] MEDS: THIAMINE HCL 100 MG TAB PO SCH (08:24)
[2023-08-23] MEDS: ATORVASTATIN 10 MG TAB PO SCH (08:25)
[2023-08-23] MEDS: ADVANCED PROBIOTIC 1250 MG CAPSULE PO SCH (08:25)
[2023-08-23] MEDS: CYANOCOBALAMIN (B-12) 500 MCG TABLET PO SCH (08:25)
[2023-08-23] MEDS: FOLIC ACID 1 MG TAB PO SCH (08:25)
[2023-08-23] MEDS: ENOXAPARIN INJ 40 MG/0.4 ML SYR SQ SCH (08:26)
[2023-08-23] MEDS: PREGABALIN 25 MG CAP PO SCH ×2 (08:37→20:28)
[2023-08-23 12:49] LABS: Hematocrit (blood only) 48.1 % (42.0-52.0); Hemoglobin 17.1 g/dl (14.0-18.0); Mean Corpuscular Hemoglobin 34.2 pg (25.0-34.0); Mean Corpuscular Hgb Conc 35.6 g/dL (32.0-36.0); Mean Corpuscular Volume 96.2 fL (80.0-100.0); Mean Platelet Volume 9.8 fL (9.4-12.4); Platelet Count 339 K/uL (130-400); RDW Coefficient of Variation 11.9 % (11.5-14.5); RDW Standard Deviation 41.6 fL (36.4-46.3); White Blood Count 10.56 K/ul (4.8-10.8)
[2023-08-23 12:57] LABS: Calcium 9.5 mg/dl (8.6-10.3); Creatinine Clr Calc Pharmacy 131.6 ml/min; Est GFR (African American) 110.8 ml/min; Est GFR (Non-African American) 95.6 ml/min; Potassium 4.7 mmol/L (3.5-5.1)
--- NOTE | 2023-08-23 13:14 | Hospitalist Progress Note ---
Date of Service August 23, 2023 Assessment & Plan (1) Left foot infection: Plan: This is a 68-year-old male with history of peripheral vascular disease, COPD, etc. presenting with left foot wound infection and found to have bacteremia. ? Bacteremia Left foot infection GRAM POSITIVE BACTEREMIA, COCCI CLUSTERS 2/2 POSITIVE MRI footLarge heel ulcer, measures approximately 4.8 cm mid-lateral by 2.8 cm, anteroposterior and is approximately 7 mm deep.No edema of the underlying calcaneus to indicate osteomyelitis.No fluid collection or abscess. Complicated by PAD, see below Blood culture from 08/18 "Prob. román gram positive cocci" on 2/2 cultures, ? contaminant Repeat blood cultures ordered 08/20 prelim without growth S/p L heel wound debridement 08/[address] Chau OR cultures from 08/20 - pending Per ID, Dr. Monge recommends Vancomycin and cefepime with final recs to come once OR cultures finalize. Likely to need 14d course Continue to off load wound PAD Aortoiliac stenosis High grade stenosis of BLE seen on BLE arterial duplex Vascular surgery ordered abd CTA revealing atherosclerosis with age- indeterminate occlusion of the left superficial femoral artery. High-grade stenosis at the origin of the inferior mesenteric artery. No abdominal aortic aneurysm or dissection Vascular surgery feels patient will benefit from arteriogram with BL iliac stenting and LLE angio with possible intervention Planning for OR Friday NPO after midnight Friday night Continue aspirin, statin Pre Diabetes A1c 6.0 encourage diet/lifestyle modifications diabetes education packets to be provided COPD Chronic; stable. 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 Full Code DVT Prophylaxis- SQ lovenox (last dose Friday, then will need to be held for likely OR Friday) Admission and Anticipated Discharge Date Admission Date: August 18, 2023 Subjective Pt was seen and examined in room 356-1. F/U L Heel ulcer, ? bacteremia. Underwent debridement with Dr. Chau in the OR 08/20, cultures pending. Denies any other new symptoms overnight. Comfortable at this time. Tolerating diet without any issues. Denies f/c/s, chest pain, sob, n/v/d. Seen by [facility]. surgery - plan for intervention on Friday. Family visiting at the bedside and updated. Review of Systems Review of Systems: All systems reviewed & are unremarkable except as noted in Subjective Physical Exam Physical Exam: Gen: WD/WN, NAD, resting in bed comfortably, A&Ox3 HEENT: Normocephalic, atraumatic, conjunctivae moist, sclerae anicteric, mucous membranes moist Lung: +Rhonchi scattered, some expiratory wheezes, no rales, normal work of breathing Heart: Regular rate, regular rhythm, no murmurs, rubs, or gallops Abdomen: Soft, NT, ND +BS x 4 Extremities: L foot dressing c/d/i, offloaded in waffle boot,no edema Skin: Warm, no rash Results & Data Results & Data Vital Signs (Past 12 Hours) Vital Signs Temp Pulse Resp BP Pulse Ox O2 Del Method 08/23/23 08:08 36.3 C L 76 16 137/82 96 Room Air 08/23/23 07:20 Room Air Laboratory Results 08/23/23 08/23/23 08/22/23 Range/Units 12:27 12:27 12:15 WBC 10.56 (4.8-10.8) K/ul RBC 5.00 (4.70-6.10) M/uL Hgb 17.1 (14.0-18.0) g/dl Hct 48.1 (42.0-52.0) % MCV 96.2 (80.0-100.0) fL MCH 34.2 H (25.0-34.0) pg MCHC 35.6 (32.0-36.0) g/dL RDW Std Deviation 41.6 (36.4-46.3) fL RDW Coeff of Vonnie 11.9 (11.5-14.5) % Plt Count 339 (130-400) K/uL MPV 9.8 (9.4-12.4) fL Sodium 132 L (136-145) mmol/L Potassium 4.7 (3.5-5.1) mmol/L Chloride 102 (98-107) mmol/L Carbon Dioxide 26 (21-32) mmol/L Anion Gap 4 (3-11) BUN 12 (6-23) mg/dl Creatinine 0.75 (0.6-1.4) mg/dl Est Cr Clr Drug Dosing 131.6 ml/min Est GFR ( Amer) 110.8 ml/min Est GFR (Non-Af Amer) 95.6 ml/min BUN/Creatinine Ratio 16.0 (10-20) Glucose 94 (70-99(Fasting)) mg/dl Calcium 9.5 (8.6-10.3) mg/dl Magnesium 2.0 (1.7-2.4) mg/dl Random Vancomycin 14.5 (10-20) mcg/ml Medications Administered Current Inpatient Medications Acetaminophen (Acetaminophen 325 Mg Tab) 650 mg PO Q4H PRN PRN Reason: pain/fever Stop: 09/17/23 21:38 Last Admin: 08/21/23 15:19 Dose: 650 mg Albuterol (Albut/Ipratrop 3mg/0.5mg Neb 3 Ml Vial) 3 ml NEB QIDR PRN; Protocol PRN Reason: Shortness Of Breath Or Wheezing Stop: 09/20/23 18:59 Aspirin (Aspirin 81 Mg Ectab) 81 mg PO QAM MAYE Stop: 09/21/23 08:59 Last Admin: 08/23/23 08:24 Dose: 81 mg Atorvastatin Calcium (Atorvastatin 10 Mg Tab) 10 mg PO QAM MAYE Stop: 09/20/23 08:59 Last Admin: 08/23/23 08:25 Dose: 10 mg Cyanocobalamin (Cyanocobalamin (B-12) 500 Mcg Tablet) 1,000 mcg PO DAILY MAYE Stop: 09/18/23 08:59 Last Admin: 08/23/23 08:25 Dose: 1,000 mcg Enoxaparin Sodium (Enoxaparin Inj 40 Mg/0.4 Ml Syr) 40 mg SQ Q24H MAYE Stop: 09/21/23 08:59 Last Admin: 08/23/23 08:26 Dose: 40 mg Folic Acid (Folic Acid 1 Mg Tab) 1 mg PO DAILY MAYE Stop: 09/18/23 08:59 Last Admin: 08/23/23 08:25 Dose: 1 mg Gabapentin (Gabapentin 300 Mg Cap) 900 mg PO TID MAYE Stop: 09/17/23 20:59 Last Admin: 08/23/23 08:23 Dose: 900 mg Cefepime HCl 2,000 mg/ Syringe 20 mls @ 5 mls/min IV Q8H MAYE; Protocol Stop: 08/26/23 01:59 Last Admin: 08/23/23 10:41 Dose: 5 mls/min Vancomycin HCl 1,250 mg/ (Sodium Chloride) 275 mls @ 200 mls/hr IV Q12H MAYE Stop: 09/04/23 03:59 Last Infusion: 08/23/23 04:42 Dose: Infused Lactobacillus Acidophilus (Advanced Probiotic 1250 Mg Capsule) 2 cap PO DAILY MAYE Stop: 09/18/23 08:59 Last Admin: 08/23/23 08:25 Dose: 2 cap Lorazepam (Lorazepam 2 Mg/1 Ml Vial) 1 mg IV ONE PRN; Protocol PRN Reason: EtoH Withdrawal AWSS 6-10 Miscellaneous Information (Vancomycin Consult Active) 1 each N/A UD PRN PRN Reason: Consult Stop: 09/19/23 14:03 Potassium Chloride (Potassium Chloride Crtab 20 Meq Tabcr) 40 meq PO BID [facility] Stop: 09/18/23 11:14 Last Admin: 08/23/23 08:24 Dose: 40 meq Pregabalin (Pregabalin 25 Mg Cap) 25 mg PO BID [facility] Stop: 09/17/23 20:59 Last Admin: 08/23/23 08:37 Dose: 25 mg Thiamine HCl (Thiamine Hcl 100 Mg Tab) 100 mg PO DAILY [facility] Stop: 09/18/23 08:59 Last Admin: 08/23/23 08:24 Dose: 100 mg
[2023-08-24] MEDS: CEFEPIME 2,000 MG in SYRINGE 0 ML IV SCH ×3 (02:12→18:22)
[2023-08-24] MEDS ORDERED: VANCOMYCIN LEVEL ONE (03:30)
[2023-08-24 04:00] LABS: Hematocrit (blood only) 49.8 % (42.0-52.0); Hemoglobin 17.8 g/dl (14.0-18.0); Mean Corpuscular Hemoglobin 34.2 pg (25.0-34.0); Mean Corpuscular Hgb Conc 35.7 g/dL (32.0-36.0); Mean Corpuscular Volume 95.8 fL (80.0-100.0); Mean Platelet Volume 9.6 fL (9.4-12.4); Platelet Count 339 K/uL (130-400); RDW Coefficient of Variation 11.9 % (11.5-14.5); RDW Standard Deviation 41.4 fL (36.4-46.3)
[2023-08-24 04:14] LABS: BUN Creatinine Ratio 16.9 (10-20); Calcium 9.6 mg/dl (8.6-10.3); Est GFR (African American) 113.3 ml/min; Est GFR (Non-African American) 97.8 ml/min; Magnesium 1.9 mg/dl (1.7-2.4); Phosphorus 3.4 mg/dl (2.5-4.9); Potassium 4.6 mmol/L (3.5-5.1)
[2023-08-24] MEDS: VANCOMYCIN HCL 1,250 MG in SODIUM CHLORIDE 0.9% 250 ML IV SCH (04:31)
[2023-08-24] MEDS: PREGABALIN 25 MG CAP PO SCH ×2 (08:47→21:43)
[2023-08-24] MEDS: GABAPENTIN 300 MG CAP PO SCH ×3 (08:47→21:43)
[2023-08-24] MEDS: ATORVASTATIN 10 MG TAB PO SCH (08:48)
[2023-08-24] MEDS: CYANOCOBALAMIN (B-12) 500 MCG TABLET PO SCH (08:48)
[2023-08-24] MEDS: FOLIC ACID 1 MG TAB PO SCH (08:48)
[2023-08-24] MEDS: POTASSIUM CHLORIDE CRTAB 20 MEQ TABCR PO SCH ×2 (08:48→21:44)
[2023-08-24] MEDS: ADVANCED PROBIOTIC 1250 MG CAPSULE PO SCH (08:48)
[2023-08-24] MEDS: ASPIRIN 81 MG ECTAB PO SCH (08:49)
[2023-08-24] MEDS: ENOXAPARIN INJ 40 MG/0.4 ML SYR SQ SCH (08:49)
[2023-08-24] MEDS: THIAMINE HCL 100 MG TAB PO SCH (08:49)
--- NOTE | 2023-08-24 10:38 | Pharmacy Report ---
Pharmacy PK ABX Note - Date of Service August 24, 2023 - Assessment and Plan Assessment 08/24: OR foot cultures growing strep sp. at this time. First set of blood cultures resulted as Finegoldia magna, Repeat cultures negative to date. Continues on cefepime/vancomycin at this time. Trough this morning 11.5, predicts low end of therapeutic range- will adjust dose to target upper end. 68 year old M receiving Vancomycin and Cefepime for treatment of lower extremity cellulitis and bacteremia. * Today was day #5 of Cefepime and Day #3 of Vancomycin. I * Blood cultures from 08/18/23 are growing GPCs in clusters indicating staph species in the anaerobic bottles only. BCID2 PCR panel did not detect the species. Repeat blood cultures with no growth to date. Plan Vancomycin * Current regimen: 1250 mg IV every 12 hours * Random level obtained 08/24/23 resulted as 11.5 mcg/mL. This is predicted to achieve target AUC/ZORAIDA of 400-600 mg/L.hr (402), however given low end of goal, will adjust dose. * Change to 1750 mg IV every 12 hours * Repeat random level ordered for: 08/26/23 Cefepime * 2000 mg IV every 8 hours Pharmacy will continue to follow and will adjust dose/frequency as necessary. Thank you. Pharmacy has transitioned to AUC monitoring for vancomycin. AUC/ZORAIDA is the preferred PK/PD target and is associated with decreased risk of nephrotoxicity compared to traditional trough targets.
[2023-08-24] MEDS: VANCOMYCIN HCL 1,750 MG in SODIUM CHLORIDE 0.9% 500 ML IV SCH (15:41)
--- NOTE | 2023-08-24 16:03 | Hospitalist Progress Note ---
Date of Service August 24, 2023 Assessment & Plan (1) Left foot infection: Plan: This is a 68-year-old male with history of peripheral vascular disease, COPD, etc. presenting with left foot wound infection and found to have bacteremia. ? Bacteremia Left foot infection MRI footLarge heel ulcer, measures approximately 4.8 cm mid-lateral by 2.8 cm, anteroposterior and is approximately 7 mm deep.No edema of the underlying calcaneus to indicate osteomyelitis.No fluid collection or abscess. Complicated by PAD, see below Blood culture from 08/18 - Finegoldia magna, ? contaminant Repeat blood cultures ordered 08/20 - negat. for 48 hrs S/p L heel wound debridement 08/[address] Chau OR cultures from 08/20 - Strep species, Bacteroides caccae, final results pending - added flagyl (08/24/2023) Per ID, Dr. Monge recommends Vancomycin and cefepime with final recs to come once OR cultures finalize. Likely to need 14d course Continue to off load wound PAD Aortoiliac stenosis High grade stenosis of BLE seen on BLE arterial duplex Vascular surgery ordered abd CTA revealing atherosclerosis with age- indeterminate occlusion of the left superficial femoral artery. High-grade stenosis at the origin of the inferior mesenteric artery. No abdominal aortic aneurysm or dissection Vascular surgery feels patient will benefit from arteriogram with BL iliac stenting and LLE angio with possible intervention Planning for OR Friday NPO after midnight Friday night Continue aspirin, statin Pre Diabetes A1c 6.0 encourage diet/lifestyle modifications diabetes education packets to be provided COPD Chronic; stable. 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 Full Code DVT Prophylaxis- SQ lovenox (last dose Friday, then will need to be held for likely OR Friday) Admission and Anticipated Discharge Date Admission Date: August 18, 2023 Subjective Pt was seen and examined in room 356-1. F/U L Heel ulcer, ? bacteremia. Underwent debridement with Dr. Chau in the OR 08/20 Denies any other new symptoms overnight. Comfortable at this time. Tolerating diet without any issues. Denies f/c/s, chest pain, sob, n/v/d. [facility] for [facility] on Friday. Family visiting at the bedside and updated. Review of Systems Review of Systems: All systems reviewed & are unremarkable except as noted in Subjective Physical Exam Physical Exam: Gen: WD/WN, NAD, resting in bed comfortably, A&Ox3 HEENT: Normocephalic, atraumatic, conjunctivae moist, sclerae anicteric, mucous membranes moist Lung: +Rhonchi scattered, some expiratory wheezes, no rales, normal work of breathing Heart: Regular rate, regular rhythm, no murmurs, rubs, or gallops Abdomen: Soft, NT, ND +BS x 4 Extremities: L foot dressing c/d/i, offloaded in waffle boot,no edema Skin: Warm, no rash Results & Data Results & Data Vital Signs (Past 12 Hours) Vital Signs Temp Pulse Resp BP Pulse Ox O2 Del Method 08/24/23 15:10 36.5 C 77 16 112/74 94 Room Air 08/24/23 07:20 Room Air 08/24/23 07:32 36.8 C 78 16 120/81 95 Room Air Laboratory Results 08/24/23 08/24/23 08/24/23 Range/Units 03:40 03:40 03:40 WBC 11.20 H (4.8-10.8) K/ul RBC 5.20 (4.70-6.10) M/uL Hgb 17.8 (14.0-18.0) g/dl Hct 49.8 (42.0-52.0) % MCV 95.8 (80.0-100.0) fL MCH 34.2 H (25.0-34.0) pg MCHC 35.7 (32.0-36.0) g/dL RDW Std Deviation 41.4 (36.4-46.3) fL RDW Coeff of Vonnie 11.9 (11.5-14.5) % Plt Count 339 (130-400) K/uL MPV 9.6 (9.4-12.4) fL Sodium 133 L (136-145) mmol/L Potassium 4.6 (3.5-5.1) mmol/L Chloride 103 (98-107) mmol/L Carbon Dioxide 24 (21-32) mmol/L Anion Gap 6 (3-11) BUN 12 (6-23) mg/dl Creatinine 0.71 (0.6-1.4) mg/dl Est Cr Clr Drug Dosing 139.0 ml/min Est GFR ( Amer) 113.3 ml/min Est GFR (Non-Af Amer) 97.8 ml/min BUN/Creatinine Ratio 16.9 (10-20) Glucose 98 (70-99(Fasting)) mg/dl Calcium 9.6 (8.6-10.3) mg/dl Phosphorus 3.4 D (2.5-4.9) mg/dl Magnesium 1.9 (1.7-2.4) mg/dl Random Vancomycin 11.5 (10-20) mcg/ml Medications Administered Current Inpatient Medications Acetaminophen (Acetaminophen 325 Mg Tab) 650 mg PO Q4H PRN PRN Reason: pain/fever Stop: 09/17/23 21:38 Last Admin: 08/21/23 15:19 Dose: 650 mg Albuterol (Albut/Ipratrop 3mg/0.5mg Neb 3 Ml Vial) 3 ml NEB QIDR PRN; Protocol PRN Reason: Shortness Of Breath Or Wheezing Stop: 09/20/23 18:59 Aspirin (Aspirin 81 Mg Ectab) 81 mg PO QAM [facility] Stop: 09/21/23 08:59 Last Admin: 08/24/23 08:49 Dose: 81 mg Atorvastatin Calcium (Atorvastatin 10 Mg Tab) 10 mg PO QAM [facility] Stop: 09/20/23 08:59 Last Admin: 08/24/23 08:48 Dose: 10 mg Cyanocobalamin (Cyanocobalamin (B-12) 500 Mcg Tablet) 1,000 mcg PO DAILY [facility] Stop: 09/18/23 08:59 Last Admin: 08/24/23 08:48 Dose: 1,000 mcg Enoxaparin Sodium (Enoxaparin Inj 40 Mg/0.4 Ml Syr) 40 mg SQ Q24H [facility] Stop: 09/21/23 08:59 Last Admin: 08/24/23 08:49 Dose: 40 mg Folic Acid (Folic Acid 1 Mg Tab) 1 mg PO DAILY [facility] Stop: 09/18/23 08:59 Last Admin: 08/24/23 08:48 Dose: 1 mg Gabapentin (Gabapentin 300 Mg Cap) 900 mg PO TID [facility] Stop: 09/17/23 20:59 Last Admin: 08/24/23 13:59 Dose: 900 mg Cefepime HCl 2,000 mg/ Syringe 20 mls @ 5 mls/min IV Q8H [facility]; Protocol Stop: 08/26/23 01:59 Last Admin: 08/24/23 11:09 Dose: 5 mls/min Vancomycin HCl 1,750 mg/ (Sodium Chloride) 535 mls @ 200 mls/hr IV Q12H [facility] Stop: 09/04/23 03:59 Last Admin: 08/24/23 15:41 Dose: 200 mls/hr Lactobacillus Acidophilus (Advanced Probiotic 1250 Mg Capsule) 2 cap PO DAILY [facility] Stop: 09/18/23 08:59 Last Admin: 08/24/23 08:48 Dose: 2 cap Lorazepam (Lorazepam 2 Mg/1 Ml Vial) 1 mg IV ONE PRN; Protocol PRN Reason: EtoH Withdrawal AWSS 6-10 Miscellaneous Information (Vancomycin Consult Active) 1 each N/A UD PRN PRN Reason: Consult Stop: 09/19/23 14:03 Potassium Chloride (Potassium Chloride Crtab 20 Meq Tabcr) 40 meq PO BID [facility] Stop: 09/18/23 11:14 Last Admin: 08/24/23 08:48 Dose: 40 meq Pregabalin (Pregabalin 25 Mg Cap) 25 mg PO BID [facility] Stop: 09/17/23 20:59 Last Admin: 08/24/23 08:47 Dose: 25 mg Thiamine HCl (Thiamine Hcl 100 Mg Tab) 100 mg PO DAILY [facility] Stop: 09/18/23 08:59 Last Admin: 08/24/23 08:49 Dose: 100 mg
[2023-08-24] MEDS: metroNIDAZOLE 500 MG/100 ML BAG IV SCH (18:25)
--- NOTE | 2023-08-24 20:28 | Orthopedic Progress Note ---
Date of Service August 24, 2023 Assessment & Plan (1) Left foot infection: Plan: Patient was seen and examined at bedside in room 356-1. Patient is status post day #4 Left heel wound excision and application of antibiotic beads. Patient is in waffle boot with pillows under leg. Off-loading is a critical part of this patient's management. Will continue to follow. Thank you for allowing me to participate in the care of this Patient. (2) Ulcer of left heel: Admission and Anticipated Discharge Date Admission Date: August 18, 2023 Subjective Patient seen and examined this morning in room 356-1. Patient resting comfortably and has no complaints. Patient is status post day #4 left foot surgery. Patient seen by [facility]. surgery and intervention planned on Friday. Review of Systems Review of Systems: All systems reviewed & are unremarkable except as noted in Subjective Physical Exam Constitutional: well developed and cooperative Eyes: normal visual king by confrontation Neck: trachea midline Respiratory: normal respiratory effort Cardiovascular: Rate/Rhythm: regular rate and regular rhythm Vessels: posterior tibial pulses present and dorsalis pedis pulses present Musculoskeletal: Extremities: extremities normal to inspection and strength 5/5 throughout Skin: + ulcer (Left heel ulcer full thickness wound exposed muscle, Abx beads ) and + erythema (left heel wound with edema) Neurologic: moves all extremities (Decreased epicritic sensation) Psychiatric: Orientation: alert and oriented x 3 Results & Data Vital Signs (Past 12 Hours) Vital Signs Temp Pulse Resp BP Pulse Ox O2 Del Method 08/24/23 15:10 36.5 C 77 16 112/74 94 Room Air
[2023-08-25] MEDS: CEFEPIME 2,000 MG in SYRINGE 0 ML IV SCH ×3 (01:29→17:44)
[2023-08-25] MEDS: metroNIDAZOLE 500 MG/100 ML BAG IV SCH ×3 (01:29→17:47)
[2023-08-25] MEDS: VANCOMYCIN HCL 1,750 MG in SODIUM CHLORIDE 0.9% 500 ML IV SCH ×2 (03:59→15:01)
[2023-08-25 08:14] LABS: Hemoglobin 17.4 g/dl (14.0-18.0); Mean Corpuscular Hemoglobin 33.7 pg (25.0-34.0); Mean Corpuscular Hgb Conc 34.8 g/dL (32.0-36.0); Mean Corpuscular Volume 96.7 fL (80.0-100.0); Mean Platelet Volume 9.7 fL (9.4-12.4); Platelet Count 342 K/uL (130-400); RDW Coefficient of Variation 11.9 % (11.5-14.5); RDW Standard Deviation 42.5 fL (36.4-46.3); Red Blood Count 5.17 M/uL (4.70-6.10)
[2023-08-25 08:50] LABS: BUN Creatinine Ratio 17.3 (10-20); Calcium 9.5 mg/dl (8.6-10.3); Creatinine Clr Calc Pharmacy 121.8 ml/min; Est GFR (African American) 107.3 ml/min; Est GFR (Non-African American) 92.6 ml/min; Magnesium 2.1 mg/dl (1.7-2.4); Phosphorus 3.2 mg/dl (2.5-4.9); Potassium 4.7 mmol/L (3.5-5.1)
[2023-08-25] MEDS: GABAPENTIN 300 MG CAP PO SCH ×3 (08:56→20:35)
[2023-08-25] MEDS: POTASSIUM CHLORIDE CRTAB 20 MEQ TABCR PO SCH ×2 (08:56→20:35)
[2023-08-25] MEDS: FOLIC ACID 1 MG TAB PO SCH (08:57)
[2023-08-25] MEDS: THIAMINE HCL 100 MG TAB PO SCH (08:57)
[2023-08-25] MEDS: ASPIRIN 81 MG ECTAB PO SCH (08:57)
[2023-08-25] MEDS: ADVANCED PROBIOTIC 1250 MG CAPSULE PO SCH (08:58)
[2023-08-25] MEDS: ATORVASTATIN 10 MG TAB PO SCH (08:58)
[2023-08-25] MEDS: CYANOCOBALAMIN (B-12) 500 MCG TABLET PO SCH (08:58)
--- NOTE | 2023-08-25 09:02 | Hospitalist Progress Note ---
Date of Service August 25, 2023 Assessment & Plan (1) Left foot infection: Plan: This is a 68-year-old male with history of peripheral vascular disease, COPD, etc. presenting with left foot wound infection and found to have bacteremia. ? Bacteremia Left foot infection MRI footLarge heel ulcer, measures approximately 4.8 cm mid-lateral by 2.8 cm, anteroposterior and is approximately 7 mm deep.No edema of the underlying calcaneus to indicate osteomyelitis.No fluid collection or abscess. Complicated by PAD, see below Blood culture from 08/18 - Finegoldia magna, ? contaminant Repeat blood cultures ordered 08/20 - negat. for 48 hrs S/p L heel wound debridement 08/[address] Chau OR cultures from 08/20 - Strep species, Bacteroides caccae, final results pending - added flagyl (08/24/2023) Per ID, Dr. Monge recommends Vancomycin and cefepime with final recs to come once OR cultures finalize. Likely to need 14d course Continue to off load wound PAD Aortoiliac stenosis High grade stenosis of BLE seen on BLE arterial duplex Vascular surgery ordered abd CTA revealing atherosclerosis with age- indeterminate occlusion of the left superficial femoral artery. High-grade stenosis at the origin of the inferior mesenteric artery. No abdominal aortic aneurysm or dissection Vascular surgery feels patient will benefit from arteriogram with BL iliac stenting and LLE angio with possible intervention Pt is now s/p p Angiogram, Percutaneous Transluminal Angioplasty and Stenting of Right Common Iliac Artery, Arteriogram Left Lower Extremity w/MD Vipin (08/25/2023) Tolerated procedure well Continue aspirin, statin Pre Diabetes A1c 6.0 encourage diet/lifestyle modifications diabetes education packets to be provided COPD Chronic; stable. 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 Full Code DVT Prophylaxis- SQ lovenox (on hold for surg. procedure) Admission and Anticipated Discharge Date Admission Date: August 18, 2023 Subjective Pt was seen and examined in room 356-1. F/U L Heel ulcer, ? bacteremia. Underwent debridement with Dr. Chau in the OR 08/20 Denies any other new symptoms overnight. Comfortable at this time. Tolerating diet without any issues. Denies f/c/s, chest pain, sob, n/v/d. Seen by [facility] surgery - and underwent surg. intervention with them earlier today, Pt is feeling well overall, his only complain is back pain from laying flat too long. Review of Systems Review of Systems: All systems reviewed & are unremarkable except as noted in Subjective Physical Exam Physical Exam: Gen: WD/WN, NAD, resting in bed comfortably, A&Ox3 HEENT: Normocephalic, atraumatic, conjunctivae moist, sclerae anicteric, mucous membranes moist Lung: +Rhonchi scattered, some expiratory wheezes, no rales, normal work of breathing Heart: Regular rate, regular rhythm, no murmurs, rubs, or gallops Abdomen: Soft, NT, ND +BS x 4 Extremities: L foot dressing c/d/i, offloaded in waffle boot,no edema Skin: Warm, no rash Results & Data Results & Data Vital Signs (Past 12 Hours) Vital Signs Temp Pulse Resp BP Pulse Ox O2 Del Method 08/25/23 07:24 36.6 C 78 16 125/83 98 Room Air 08/24/23 21:50 Room Air 08/24/23 21:29 36.7 C 73 16 136/88 94 Room Air Laboratory Results 08/25/23 08/25/23 Range/Units 07:28 07:28 WBC 9.20 (4.8-10.8) K/ul RBC 5.17 (4.70-6.10) M/uL Hgb 17.4 (14.0-18.0) g/dl Hct 50.0 (42.0-52.0) % MCV 96.7 (80.0-100.0) fL MCH 33.7 (25.0-34.0) pg MCHC 34.8 (32.0-36.0) g/dL RDW Std Deviation 42.5 (36.4-46.3) fL RDW Coeff of Vonnie 11.9 (11.5-14.5) % Plt Count 342 (130-400) K/uL MPV 9.7 (9.4-12.4) fL Sodium 134 L (136-145) mmol/L Potassium 4.7 (3.5-5.1) mmol/L Chloride 103 (98-107) mmol/L Carbon Dioxide 25 (21-32) mmol/L Anion Gap 6 (3-11) BUN 14 (6-23) mg/dl Creatinine 0.81 (0.6-1.4) mg/dl Est Cr Clr Drug Dosing 121.8 ml/min Est GFR ( Amer) 107.3 ml/min Est GFR (Non-Af Amer) 92.6 ml/min BUN/Creatinine Ratio 17.3 (10-20) Glucose 89 (70-99(Fasting)) mg/dl Calcium 9.5 (8.6-10.3) mg/dl Phosphorus 3.2 (2.5-4.9) mg/dl Magnesium 2.1 (1.7-2.4) mg/dl Medications Administered Current Inpatient Medications Acetaminophen (Acetaminophen 325 Mg Tab) 650 mg PO Q4H PRN PRN Reason: pain/fever Stop: 09/17/23 21:38 Last Admin: 08/21/23 15:19 Dose: 650 mg Albuterol (Albut/Ipratrop 3mg/0.5mg Neb 3 Ml Vial) 3 ml NEB QIDR PRN; Protocol PRN Reason: Shortness Of Breath Or Wheezing Stop: 09/20/23 18:59 Aspirin (Aspirin 81 Mg Ectab) 81 mg PO QAM [facility] Stop: 09/21/23 08:59 Last Admin: 08/25/23 08:57 Dose: 81 mg Atorvastatin Calcium (Atorvastatin 10 Mg Tab) 10 mg PO QAM [facility] Stop: 09/20/23 08:59 Last Admin: 08/25/23 08:58 Dose: 10 mg Cyanocobalamin (Cyanocobalamin (B-12) 500 Mcg Tablet) 1,000 mcg PO DAILY [facility] Stop: 09/18/23 08:59 Last Admin: 08/25/23 08:58 Dose: 1,000 mcg Enoxaparin Sodium (Enoxaparin Inj 40 Mg/0.4 Ml Syr) 40 mg SQ Q24H [facility] Stop: 09/21/23 08:59 Last Admin: 08/24/23 08:49 Dose: 40 mg Folic Acid (Folic Acid 1 Mg Tab) 1 mg PO DAILY [facility] Stop: 09/18/23 08:59 Last Admin: 08/25/23 08:57 Dose: 1 mg Gabapentin (Gabapentin 300 Mg Cap) 900 mg PO TID [facility] Stop: 09/17/23 20:59 Last Admin: 08/25/23 08:56 Dose: 900 mg Cefepime HCl 2,000 mg/ Syringe 20 mls @ 5 mls/min IV Q8H [facility]; Protocol Stop: 08/26/23 01:59 Last Admin: 08/25/23 01:29 Dose: 5 mls/min Vancomycin HCl 1,750 mg/ (Sodium Chloride) 535 mls @ 200 mls/hr IV Q12H [facility] Stop: 09/04/23 03:59 Last Infusion: 08/25/23 06:48 Dose: Infused Metronidazole (Flagyl) 500 mg in 100 mls @ 100 mls/hr IV Q8H [facility]; Protocol Stop: 08/31/23 16:59 Last Admin: 08/25/23 08:50 Dose: 100 mls/hr Lactobacillus Acidophilus (Advanced Probiotic 1250 Mg Capsule) 2 cap PO DAILY [facility] Stop: 09/18/23 08:59 Last Admin: 08/25/23 08:58 Dose: 2 cap Lorazepam (Lorazepam 2 Mg/1 Ml Vial) 1 mg IV ONE PRN; Protocol PRN Reason: EtoH Withdrawal AWSS 6-10 Miscellaneous Information (Vancomycin Consult Active) 1 each N/A UD PRN PRN Reason: Consult Stop: 09/19/23 14:03 Potassium Chloride (Potassium Chloride Crtab 20 Meq Tabcr) 40 meq PO BID [facility] Stop: 09/18/23 11:14 Last Admin: 08/25/23 08:56 Dose: 40 meq Pregabalin (Pregabalin 25 Mg Cap) 25 mg PO BID [facility] Stop: 09/17/23 20:59 Last Admin: 08/24/23 21:43 Dose: 25 mg Thiamine HCl (Thiamine Hcl 100 Mg Tab) 100 mg PO DAILY [facility] Stop: 09/18/23 08:59 Last Admin: 08/25/23 08:57 Dose: 100 mg
[2023-08-25] MEDS: PREGABALIN 25 MG CAP PO SCH ×2 (09:03→20:35)
--- NOTE | 2023-08-25 09:38 | History & Physical Bridge Note ---
Date of Service August 25, 2023 History & Physical Bridge Note Patient for arteriography and possible interfention today. I have examined the patient, reviewed the History & Physical and in the interval since the performance of the History & Physical I have noted the following changes of clinical significance: no changes noted
[2023-08-25] MEDS ORDERED: LIDOCAINE 1% LOCAL 20 ML VIAL ONE (10:00)
[2023-08-25] MEDS ORDERED: fentaNYL citrate PF 100 MCG/2 ML VIAL ONE (10:01)
[2023-08-25] MEDS ORDERED: MIDAZOLAM HCL 1 MG/ML 2ML VIAL ONE (10:01)
[2023-08-25] MEDS ORDERED: HEPARIN SOD (PORCINE) 1000 UNIT/ML ONE (10:06)
[2023-08-25] MEDS: SODIUM CHLORIDE 0.9% 1,000 ML IV SCH (10:07)
--- NOTE | 2023-08-25 10:30 | Pre Anesthesia Assessment ---
Date of Service August 25, 2023 Pre Sedation Assessment Vital Signs Temp Pulse Pulse Pulse Resp BP BP 08/25/23 10:25 87 16 128/99 08/25/23 09:23 36.5 C 87 16 119/82 08/25/23 07:24 36.6 C 78 16 125/83 08/24/23 21:50 08/24/23 21:29 36.7 C 73 16 136/88 08/24/23 15:10 36.5 C 77 16 112/74 Pulse Ox O2 Del Method 08/25/23 10:25 94 Room Air 08/25/23 09:23 94 Room Air 08/25/23 07:24 98 Room Air 08/24/23 21:50 Room Air 08/24/23 21:29 94 Room Air 08/24/23 15:10 94 Room Air Cardiovascular RRR, no murmur, no edema Respiratory normal respiratory effort, lungs clear to auscultation Pre-Sedation Airway Assessment Smoking Status: Former smoker Hx Sleep Apnea: No Short, Thick Neck: No Thyromental Distance: > or= 3.5 Finger Breadths Oral Cavity: + WNL Mallampati Class: II ASA: ASA3 NPO Status Date of Last Intake of Fluids: 08/24/23 Time of Last Intake of Fluids: 21:00 Date of Last Intake of Solid Food: 08/24/23 Time of Last Intake of Solid Foods: 17:00 Procedure Planning Contraindications for Sedation: none Current Medications Reviewed: Yes Notes The planned sedation has been discussed with the patient. Informed Consent was obtained. I have identified the patient, determined the appropriateness of sedation and have assessed the patient immediately prior to the procedure. All medicine(s) and interventions are by my order.
[2023-08-25] MEDS ORDERED: VISIPAQUE IV PRN (11:00)
--- NOTE | 2023-08-25 11:08 | Procedure Note ---
Angiogram Post Procedure Fluoroscopy Time (minutes): 45 Radiation (mGy): 206 Contrast: 65 Post Operative Report Pre & Post Diagnosis Operation Date: 08/25/23 09:55 <No data on this case meets the specified criteria> I identified the patient and participated in the time-out.: Yes Procedure Operation Date: 08/25/23 09:55 <No data on this case meets the specified criteria> Surgeon Cole Lew MD Front End Java Developer none Estimated Blood Loss 10 I attest to the content of the Intraoperative Record and any orders documented therein. Any exceptions are noted below.
--- NOTE | 2023-08-25 11:15 | Procedure Note ---
Angiogram Post Procedure Fluoroscopy Time (minutes): 45 Radiation (mGy): 206 Contrast: 65 Post Operative Report Pre & Post Diagnosis Operation Date: 08/25/23 09:55 Pre-Op Diagnosis: LEFT SUPERFICIAL FEMORAL ARTERY OCCLUSION SEVERE RIGHT COMMON ILIAC ARTERY STENOSIS Post-Op Diagnosis: SEVERE RIGHT COMMON ILIAC STENOSIS LEFT SUPERFICIAL FEMORAL ARTERY OCCLUSION I identified the patient and participated in the time-out.: Yes Procedure Operation Date: 08/25/23 09:55 Actual Procedures p Angiogram, Percutaneous Transluminal Angioplasty and Stenting of Right Common Iliac Artery, Arteriogram Left Lower Extremity,Ultrsound Localization of Right Femoral Artery, Moderate Sedation [id number](Right) - Cole Lew MD Surgeon Cole Lew MD Spring Repairer Helper Hand none Estimated Blood Loss 10 Findings Consistent with Post-Op Diagnosis Specimens None Anesthesia Type RN Sedation Complications none Disposition Accompanied Patient To Recovery: No Disposition: Recovery Room Indications This is a 68-year-old gentleman who has a heel ulcer on the left foot. Noninvasive suggest that a right common iliac artery stenosis and a left superficial femoral artery occlusion with possible left common iliac artery stenosis. Arteriography and possible intervention was recommended. I have discussed the risks options and benefits of the procedure with the patient. The patient understands the risks options and benefits and agrees to the procedure. Description of Procedure The patient was taken the angiogram suite and placed supine position. After the groins were prepped draped in a sterile manner timeout was performed and the patient was identified. Ultrasound was then used to locate the right common femoral artery. It was patent with mild plaque. Puncture was then done of the right common femoral artery under ultrasound guidance and a 5 Spanish sheath inserted. An 035 wire was then passed up through the iliac into the aorta followed by a pigtail. Aortography was performed which showed a severe stenosis of the right common iliac artery just beyond its origin. The left iliac shows mild plaque with no significant narrowing was noted in the common or external iliac artery. The common femoral artery on both sides were patent. The right external iliac and common femoral arteries widely patent as well as the origin of the superficial femoral artery and the proximal portion of this artery on the right side. We then did an oblique view which showed a good stump present on the common iliac artery on the right side. We then switched out the pigtail over stiff and Glidewire and inserted a 7 Spanish sheath and then placed over the 5 Spanish. We then inserted an 8 x 29 VBX stent then expanded to the 8 mm size. We then placed a 12 x 4 balloon and expanded the stent to a 12 mm opening. Completion angio showed a widely patent right common iliac artery. We then reinserted the 035 wire and placed a rim catheter over into the left side in the external iliac artery. Arteriography was then performed left lower extremity showed the superficial femoral artery occlusion at its origin. The reconstituted just above the adductor hiatus. The popliteal anterior tibial posterior tibial patent down to the foot. No intervention was done on the left side due to the length of the lesion. The catheter was then removed. The sheath was removed and the puncture site closed with a Star closure device. Adequate was stasis was noted. Sterile dressings were applied to the wound. The patient left the operation room in satisfactory condition and tolerated the procedure well. All needle and sponge counts were correct at the end of the procedure. I attest to the content of the Intraoperative Record and any orders documented therein. Any exceptions are noted below.
[2023-08-25] MEDS ORDERED: SODIUM CHLORIDE 0.9% 1,000 ML IV SCH (11:18)
[2023-08-25] MEDS: ACETAMINOPHEN 325 MG TAB PO PRN (12:42)
[2023-08-26] MEDS: metroNIDAZOLE 500 MG/100 ML BAG IV SCH ×2 (00:32→09:23)
[2023-08-26] MEDS ORDERED: VANCOMYCIN LEVEL ONE (03:30)
[2023-08-26 04:26] LABS: BUN Creatinine Ratio 21.3 (10-20); Calcium 9.4 mg/dl (8.6-10.3); Creatinine Clr Calc Pharmacy 131.6 ml/min; Est GFR (African American) 110.8 ml/min; Est GFR (Non-African American) 95.6 ml/min; Magnesium 2.1 mg/dl (1.7-2.4); Phosphorus 3.3 mg/dl (2.5-4.9); Potassium 4.9 mmol/L (3.5-5.1)
[2023-08-26 04:29] LABS: Hematocrit (blood only) 49.5 % (42.0-52.0); Hemoglobin 17.7 g/dl (14.0-18.0); Mean Corpuscular Hemoglobin 33.8 pg (25.0-34.0); Mean Corpuscular Hgb Conc 35.8 g/dL (32.0-36.0); Mean Corpuscular Volume 94.5 fL (80.0-100.0); Mean Platelet Volume 9.7 fL (9.4-12.4); Platelet Count 363 K/uL (130-400); RDW Coefficient of Variation 11.8 % (11.5-14.5); RDW Standard Deviation 41.1 fL (36.4-46.3); Red Blood Count 5.24 M/uL (4.70-6.10)
[2023-08-26] MEDS: VANCOMYCIN HCL 1,750 MG in SODIUM CHLORIDE 0.9% 500 ML IV SCH (04:49)
--- NOTE | 2023-08-26 07:34 | Pharmacy Report ---
Pharmacy PK ABX Note - Date of Service August 26, 2023 - Assessment and Plan Assessment 08/26: OR foot cultures growing Strep anginosus and Bacteroides caccae. First set of blood cultures resulted as Finegoldia magna, Repeat cultures negative to date. Continues on vancomycin/Flagyl at this time. Trough this morning 17.8, predicts therapeutic level. 68 year old M receiving Vancomycin and Flagyl for treatment of lower extremity cellulitis and bacteremia. * Today was day #3 of Flagyl and Day #7 of Vancomycin. Cefepime completed. (08/20-08/25) * Blood cultures from 08/18/23 are growing Finegoldia Magna. Repeat blood cultures from 08/20 are negative. Foot cultures from 08/20 growing Strep anginosus and Bacteroides caccae. Plan Vancomycin * Current regimen: 1750 mg IV every 12 hours * Trough obtained 08/26/23 resulted as 17.8 mcg/mL. This is predicted to achieve target AUC/ZORAIDA of 400-600 mg/L.hr * Continue to 1750 mg IV every 12 hours * Repeat random level ordered if continued > 10 days Pharmacy will continue to follow and will adjust dose/frequency as necessary. Thank you. Pharmacy has transitioned to AUC monitoring for vancomycin. AUC/ZORAIDA is the preferred PK/PD target and is associated with decreased risk of nephrotoxicity compared to traditional trough targets.
[2023-08-26] MEDS: ACETAMINOPHEN 325 MG TAB PO PRN (07:36)
--- NOTE | 2023-08-26 08:13 | Communication Note ---
Date of Service: August 26, 2023 Patient with a long left SFA occlusion. He has good collateralization to the left lower leg. If there is no signs of healing in the coming week, he will need a left fem pop prosthetic above knee bypass.
[2023-08-26] MEDS: POTASSIUM CHLORIDE CRTAB 20 MEQ TABCR PO SCH (09:23)
[2023-08-26] MEDS: ATORVASTATIN 10 MG TAB PO SCH (09:24)
[2023-08-26] MEDS: ADVANCED PROBIOTIC 1250 MG CAPSULE PO SCH (09:24)
[2023-08-26] MEDS: FOLIC ACID 1 MG TAB PO SCH (09:24)
[2023-08-26] MEDS: THIAMINE HCL 100 MG TAB PO SCH (09:24)
[2023-08-26] MEDS: GABAPENTIN 300 MG CAP PO SCH ×2 (09:24→13:32)
[2023-08-26] MEDS: ASPIRIN 81 MG ECTAB PO SCH (09:25)
[2023-08-26] MEDS: PREGABALIN 25 MG CAP PO SCH (09:37)
[2023-08-26] MEDS: SODIUM CHLORIDE 0.9% 1,000 ML IV SCH (09:37)
--- NOTE | 2023-08-26 11:00 | Infectious Disease Progress Nt ---
Date of Service August 26, 2023 Telehealth Information Non-billable note Assessment & Plan (1) Left foot infection: Plan: Diagnostic Findings Blood cx (08/18): Finegoldia magna (1 of 4) L foot surf wound cx (08/18): mixed probable skin microbiota L heel deep wound (08/20): Streptococcus anginosus, Bacteroides caccae Assessment: Infected L heel ulcer Finegoldia mangna bacteremia likely transient in the setting of L heel infection Hx of EtOH abuse, peripheral neuropathy, PVD and COPD 08/19/23 - bedside debridement 08/20/23 L heel wound debridement Recommendations: - Stop IV metrondiazole and vancomycin iv - Start augmentin 875 mg/125 mg po tid (bid is ok if patient is not able to tolerate bid) - Anticipate toal 14 days from 08/20/23 - Aggressive wound care - ID signing off Results & Data Vital Signs (Past 12 Hours) Vital Signs Temp Pulse Resp BP Pulse Ox O2 Del Method 08/26/23 08:29 36.6 C 89 16 107/76 95 Room Air 08/26/23 07:36 Room Air 08/26/23 04:12 36.7 C 87 18 126/80 93 Room Air
[2023-08-26] MEDS: CYANOCOBALAMIN (B-12) 500 MCG TABLET PO SCH (11:36)
--- NOTE | 2023-08-26 15:44 | Discharge Summary ---
Discharge Summary Date of Service August 26, 2023 Notes For Next Care Provider Left foot infection growing Strep species, Bacteroides caccae, S/p L heel wound debridement 08/[address] Chau. S/p angiogram, Percutaneous Transluminal Angioplasty and Stenting of Right Common Iliac Artery, Arteriogram Left Lower Extremity by Dr. Lew on 08/25/23. Dc on Augmentin, podiatry f/u, continue aspirin and statin with vascular follow up if wound is not adequately healing. PCP and podiatry follow up next week. HH to assist with dressing changes Medication Changes From Visit Augmentin 875 mg/125 mg po three times a day until course complete. Continue aspirin 81mg and atorvastatin 10mg for peripheral arterial disease. Continue potassium supplementation. Admission HPI Per Admitting Provider 68-year-old male with history of peripheral vascular disease, COPD, etc. presenting with left foot wound infection. Patient reports noticing discoloration of left heel area for the past few weeks. Reports having chills, night sweats but denies pain over the area. He noticed progressive foot swelling, redness and progression to his left lower leg. He presented to the wound care center today and was referred to [facility] ER for evaluation and treatment. Patient's vital signs were stable, but with leukocytosis. Lactic acid negative. Foot x-ray: Soft tissue swelling He was started on vancomycin plus cefepime On exam patient seen resting , not in distress, denies active pain on the foot. Primary Care Provider: NO PCP Admission Exam Per Admitting Provider General- oriented x 3, not in distress, speaks in sentences with no effort or accessory muscle use Eyes- anicteric Neck- no JVD Lungs- clear breath sounds bilaterally, no rales/wheezes Heart- normal rate, regular rhythm; no murmurs Abdomen- normal bowel sounds, nondistended, soft, nontender Extremities- no pretibial edema, no calf tenderness Left foot: Positive for wound on the heel, with eschar, surrounding erythema, and edema, warmth, tenderness Left lower leg also with mild edema, and erythema Neuro- alert, oriented x 3; no gross focal neurologic deficits Skin- warm & dry Principal Dx & Hospital Course #1 = Principal Diagnosis (1) Left foot infection: This is a 68-year-old male with history of peripheral vascular disease, COPD, etc. presenting with left foot wound infection and ? transient bacteremia. Left foot infection Transient Finegoldia magna bacteremia MRI footLarge heel ulcer, measures approximately 4.8 cm mid-lateral by 2.8 cm, anteroposterior and is approximately 7 mm deep.No edema of the underlying calcaneus to indicate osteomyelitis.No fluid collection or abscess Infection and wound healing complicated by poor nutritional status in setting of alcoholism, longstanding tobacco use and PAD Initial blood culture from 08/18 grew Finegoldia magna. Repeat cultures without growth. ID felt Finegoldia mangna bacteremia was likely transient in the setting of L heel infection Underwent L heel wound debridement 08/[address] Chau and final OR cultures from 08/20 grew strep species, Bacteroides caccae Repeat final blood cultures from 08/20 without growth Per ID recommendation, transition to Augmentin 875 mg/125 mg po tid for a total of 14 days treatment (from 08/20/23) Per podiatry, continue to off load wound with partial weight bearing on LLE, ambulating with a walker Continue outpatient PT/OT for conditioning, especially in setting of partial WB Wound care follow up next week with Dr. Chau on 09/02/23 Continue aggressive wound care and dressing changes, home health coordinated by case management PAD Aortoiliac stenosis High grade stenosis of BLE seen on BLE arterial duplex Vascular surgery ordered abd CTA revealing atherosclerosis with age- indeterminate occlusion of the left superficial femoral artery. High-grade stenosis at the origin of the inferior mesenteric artery. No abdominal aortic aneurysm or dissection S/p p Angiogram, Percutaneous Transluminal Angioplasty and Stenting of Right Common Iliac Artery, Arteriogram Left Lower Extremity w/MD Vipin (08/25/2023) Per Dr. Lew, patient with a long left SFA occlusion. He has good collateralization to the left lower leg. If there is no signs of healing in the coming week, he will need a left fem pop prosthetic above knee bypass Discussed with vascular today - okay for discharge and close follow up with podiatry. Will need vascular follow up if inadequate LLE healing. Dr. Chau informed of this, instructed to contact over [place] Text or call office Dressing of R groin okay to be removed prior to discharge Continue aspirin, statin Pre Diabetes A1c 6.0 encourage diet/lifestyle modifications diabetes education packets to be provided COPD Chronic; stable. 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 Discharge Exam Gen: WD/WN, NAD, resting in bed comfortably, A&Ox3 HEENT: Normocephalic, atraumatic, conjunctivae moist, sclerae anicteric, mucous membranes moist Lung: +Rhonchi scattered, some expiratory wheezes, no rales, normal work of breathing Heart: Regular rate, regular rhythm, no murmurs, rubs, or gallops Abdomen: Soft, NT, ND +BS x 4 : R groin dressing c/d/i Extremities: L foot dressing c/d/i, offloaded, NVI, no edema Skin: Warm, no rash Updated Medication List Medication Instructions Recorded Confirmed Type cyanocobalamin (vitamin B-12) 1,000 mcg sublingual DAILY 09/11/22 08/18/23 History 1,000 mcg sublingual lozenge folic acid 1 mg tablet 1 mg PO DAILY 09/11/22 08/18/23 History gabapentin 300 mg capsule 900 mg PO TID 09/11/22 08/18/23 History hydrochlorothiazide 25 mg tablet 25 mg PO DAILY 09/11/22 08/18/23 History indomethacin 50 mg capsule 50 mg PO TID PRN pain 09/11/22 08/18/23 History pregabalin 25 mg capsule 25 mg PO BID 09/11/22 08/18/23 History thiamine HCl (vitamin B1) 100 mg 100 mg PO DAILY 09/11/22 08/18/23 History tablet triamcinolone acetonide 0.1 % 1 applic topical BID 09/11/22 08/18/23 History topical ointment acetaminophen 500 mg tablet 1,500 mg PO DAILY PRN Pain 01/24/23 08/18/23 History (Tylenol Extra Strength) L.acidop,casei,lactis,rham-B.lact,chris 2 cap PO DAILY #14 caps 08/26/23 Rx 625 mg (10 billion cell) capsule (Advanced Probiotic) amoxicillin 875 mg-potassium 1 tab PO Q8H #24 tabs 08/26/23 Rx clavulanate 125 mg tablet aspirin 81 mg tablet,delayed 81 mg PO QAM #30 tabs 08/26/23 Rx release atorvastatin 10 mg tablet 10 mg PO QAM #30 tabs 08/26/23 Rx potassium chloride 20 mEq 40 meq PO DAILY #30 tabs 08/26/23 Rx tablet,extended release(part/cryst) Hospital Stay Data Consultations 08/18/23 17:14 ED Decision to Admit Stat 08/18/23 17:15 Consult Podiatry Routine 08/18/23 17:19 Consult Infectious Diseases Routine 08/18/23 17:25 Consult Podiatry Routine 08/19/23 15:03 Consult Vascular Surgery Routine Procedures Performed Operation Date: 08/25/23 09:55 Actual Procedures p Angiogram, Percutaneous Transluminal Angioplasty and Stenting of Right Common Iliac Artery, Arteriogram Left Lower Extremity,Ultrsound Localization of Right Femoral Artery, Moderate Sedation 9020-1504(Right) - Cole Lew MD Diagnostic Imagining Performed 08/18/23 17:25 MR ankle LT wo con Routine EXAM: MR Left Lower Extremity Without Intravenous Contrast, Ankle CLINICAL HISTORY: Reason for exam: r/o osteomyelitis. TECHNIQUE: Multiplanar magnetic resonance images of the left ankle without intravenous contrast. COMPARISON: No relevant prior studies available. FINDINGS: Intact tibiotalar, subtalar, calcaneocuboid, talonavicular joints. Intact distal Achilles tendon. Mild fluid posterior to the ankle joint. Moderate thickening of the medial cord of plantar fascia, but small heel spur. Large heel ulcer, measures approximately 4.8 cm mid-lateral by 2.8 cm anteroposterior and is approximately 7 mm deep. No edema of the underlying calcaneus to indicate osteomyelitis. No fluid collection or abscess. Mild posterior tibial tenosynovitis. Moderate flexor houses longus tenosynovitis. Bilateral peroneal tenosynovitis. Intact anterior extensor tendons. Circumferential subcutaneous edema. Intact deltoid ligament, which is mildly scarred. No osteochondral lesion of the talar dome. IMPRESSION: Large heel ulcer, measures approximately 4.8 cm mid-lateral by 2.8 cm anteroposterior and is approximately 7 mm deep. No edema of the underlying calcaneus to indicate osteomyelitis. No fluid collection or abscess. 08/19/23 US venous doppler LE LT Stat FINDINGS: There is normal compressibility, flow, and augmentation within the left lower extremity deep venous system. IMPRESSION: No DVT within the left lower extremity. 08/20/23 11:51 US arterial duplex LE BI Routine US arterial duplex LE BI HISTORY: 68 years-old Male PAD, ulcers peripheral arterial disease with chronic lower extremity ulcers COMPARISON: None TECHNIQUE: Multiple real-time sonographic images of the lower extremity arterial structures were obtained assessing grayscale appearance, color and spectral flow FINDINGS: Diffuse atherosclerosis. RIGHT: Diffuse monophasic waveforms. No flow identified within the superficial femoral artery. A few collateral vessels are noted which may represent a chronic etiology. No flow identified within the proximal distal aspects of the peroneal artery. Peak systolic velocities within the mid aspect of the vessel measuring up to 14 cm/s. No flow identified within the mid to distal anterior tibial artery. Peak systolic velocities of 26 cm/s within the proximal artery. No flow seen within the dorsalis pedis artery. LEFT: Diffuse blunted monophasic waveforms. No flow identified within the superficial femoral artery proximal to mid segments. No visible flow identified within the proximal peroneal artery. No elevated peak systolic velocities. IMPRESSION: Extensive atherosclerosis with age-indeterminate high-grade stenosis/occlusion of the bilateral lower legs as above. 08/21/23 10:16 CTA abd pelvis wo/w con [CT angio abd pelvis wo/w con] Routine FINDINGS: CTA: The heart is normal in size. [id number] atherosclerosis. 50% stenosis at the origin of the celiac trunk with mild poststenotic dilation. Patent superior mesenteric artery. High-grade stenosis at the origin of the inferior mesenteric artery. Patent bilateral renal arteries. Irregular plaque within the bilateral iliac arteries. There is high-grade stenosis at the origin of the right common iliac artery, image 236. Irregular atheromatous and atherosclerotic plaques within the left common carotid artery results in stenosis measuring up to approximately 50%. The bilateral common iliac arteries are patent. Age- indeterminate occlusion of the left superficial femoral artery at the origin, image 382. No abdominal aortic aneurysm or dissection. No retroperitoneal hematoma. CT: Emphysema with mild bibasilar atelectasis and bronchial wall thickening. Trace left pleural effusion. Ill-defined area of decreased attenuation involving the posterior inferior spleen is wedge-shaped extending to the inferior splenic margin measuring up to 3.3 cm. No significant perisplenic edema. Unremarkable pancreas and right adrenal gland. Stable hypodense 3.5 x 2.7 cm left adrenal gland which is likely benign. Unremarkable gallbladder with equivocal cholel ithiasis. The liver is within normal limits. Mild nonspecific bilateral perinephric stranding. No hydronephrosis. Mild urinary bladder wall thickening. Prostatomegaly. Small fat-filled left inguinal hernia. No lymphadenopathy is identified. Small lipoma of the duodenum. No bowel obstruction or bowel wall thickening. Colonic diverticulosis. Normal appendix. Unremarkable soft tissues. No acute fra cture. Degenerative changes of the shoulders and spine. 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 IMPRESSION: 1. Atherosclerosis with age-indeterminate occlusion of the left superficial femoral artery. 2. High-grade stenosis at the origin of the inferior mesenteric artery. 3. No abdominal aortic aneurysm or dissection. 4. Age-indeterminate splenic infarcts, likely acute or subacute. 5. Chronic appearance of the left hip with articular collapse and severe joint space narrowing. 6. Additional findings as above. 08/25/23 08:04 EV angio UE BI Routine US EV guide vascular access Routine Pending Results Patient Have Any Pending Studies at Discharge: No Discharge Instructions Given to Patient (Per Discharging Provider) MEDICATION CHANGES: Augmentin 875 mg/125 mg po three times a day until course complete. Continue aspirin 81mg and atorvastatin 10mg for peripheral arterial disease. Continue potassium supplementation. SUMMARY OF TEST RESULTS: You were admitted to hospital secondary to left foot infection. MRI footLarge heel ulcer, measures approximately 4.8 cm mid-lateral by 2.8 cm, anteroposterior and is approximately 7 mm deep. S/p L heel wound debridement 08/[address] Chau OR cultures from 08/20 growing Strep species, Bacteroides caccae Continue antibiotics as above to complete course per infectious disease Vascular surgery ordered abdominal CTA revealing atherosclerosis with age- indeterminate occlusion of the left superficial femoral artery. High-grade stenosis at the origin of the inferior mesenteric artery. No abdominal aortic aneurysm or dissection S/p angiogram, Percutaneous Transluminal Angioplasty and Stenting of Right Common Iliac Artery, Arteriogram Left Lower Extremity by Dr. Lew on 08/25/23 PENDING TEST RESULTS: None RECOMMENDATIONS FOR FOLLOW-UP: Follow up with new PCP Dr. Anderson at [facility] on 09/01/23 at 10 AM as above. Will need follow up BMP in 1 week to assess potassium. Follow up with Dr. Chau on 09/02/23 at 12:15pm at [facility] ([address] [facility] [address] - on 3rd floor of [facility]) Complete antibiotic in its entirety. Continue partial weight bearing of left lower extremity and limit weight as much as possible to improve healing. Stop smoking to ensure good wound healing and improve vascular health. Dr. Chau to evaluate your wound in 1 week. Will need vascular surgery follow up if wound is not healing. Home health arranged for wound changes 3x / week. Per Dr. Chau, use Adaptic dressing with 4x4s, Kerlix and rebeca bandage Continue medication regimen as scheduled aside from changes noted above. OTHER INSTRUCTIONS: Seek medical attention if you have: * temperature above 101 * chest pain or trouble breathing * abdominal pain, nausea, vomiting * diarrhea, dark stools or bloody stools * any unanswered questions or concerns Call 911 if symptoms are severe. Please take good care of yourself. Call if you have any questions or problems. You can reach a [facility] hospitalist on duty at [facility] 24 hours a day by calling [phone]. Total Time Total Time Spent Total Time Spent (In Minutes): 75 Supervising Physician Co-Signing Physician Notes Pt seen and examined by me, care coordinated with Marilu Fajardo PA-C, please refer to her note above for further detail. Patient admitted and treated for left heel wound/infection. Currently patient is lying in bed, in no acute distress. He is alert oriented answering appropriately. Lungs are clear to auscultation. Heart sounds regular. Abdomen soft nontender nondistended. Patient is moving extremities without any difficulty. Left foot is in surgical dressings, and waffle boot. Skin is warm and dry. Left foot wound growing Strep species, Bacteroides caccae, S/p L heel wound debridement 08/[address] Chau (podiatry). Patient also underwent angiogram, Percutaneous Transluminal Angioplasty and Stenting of Right Common Iliac Artery, Arteriogram Left Lower Extremity by Dr. Lew (vascular surgery) on 08/25/23. Patient was treated with IV antibiotics while admitted. Culture results discuss ed with Infectious disease physician - and patient was discharged on Augmentin. Patient will need to follow up with podiatry , and have an adequate wound care. Continue aspirin and statin, with vascular surg. follow up if wound is not adequately healing. MD Kylah
== END 2023-08-26 16:30 | disposition home health service (06) | DRG 253 ==
LOC: ED 14:16 → SUATTDRO 17:19 → 3W 17:19